=== PATIENT | female | born 1955 | race Caucasian/White ===

== ENCOUNTER 2021-04-09 15:03 | Outpatient (REF) | payer MEDICARE, OTHER, SELFPAY ==
--- NOTE | ~2021-04-09 | MM_ITS ---
EXAMINATION: MM SCREENING DIGITAL BREAST TOMOSYNTHESIS, BILATERAL CLINICAL INFORMATION: Screening. Asymptomatic. The lifetime risk of breast cancer based on the Tyrer-Cuzick Model is 8%. COMPARISON: Mammography: 04/27/2016, 04/03/2015, 03/30/2015 TECHNIQUE: Digital breast tomosynthesis is performed in both the craniocaudal and mediolateral oblique views along with computer-aided detection (CAD). Synthesized 2D images are generated from the tomosynthesis. Additional bilateral exaggerated CC views are provided. FINDINGS: The breasts are heterogeneously dense, which may obscure small masses (ACR BI-RADS breast composition Category c). There are no significant masses, abnormal calcifications, or other abnormalities. There is fine fibronodular parenchymal pattern similar to prior exams. No developing density. No significant changes. The skin contours are smooth. MM/MM tomosynthesis screening BI IMPRESSION: No mammographic evidence of malignancy. ASSESSMENT: BI-RADS 1: Negative RECOMMENDATION: Routine annual mammography screening. This patient's information was entered into a reminder system with a target due date for their next mammogram.
== END 2021-04-09 15:04 | disposition home or self-care (01) ==
LOC: HO.MAMMO 15:03
PROVIDERS: PCP Physician Assistant; Visit Provider Physician Assistant
DX: Z12.31 Encounter for screening mammogram for malignant neoplasm of breast (principal)
CPT/HCPCS: 77063; 77067

== ENCOUNTER 2021-08-10 07:12 | Outpatient (REF) | payer MEDICARE, OTHER, SELFPAY | END 2021-08-10 07:13 | disposition home or self-care (01) | LOC: HO.HMGCLDS 07:12 | PROVIDERS: PCP Physician Assistant; Visit Provider Internal Medicine | DX: Z20.822 Contact with and (suspected) exposure to COVID-19 (principal) | CPT/HCPCS: C9803; U0003; U0005 ==

== ENCOUNTER → 2021-09-10 14:19 | Outpatient (BNVA) | payer OTHER, SELFPAY | PROVIDERS: PCP Physician Assistant; Visit Provider Internal Medicine | DX: S40.011A Contusion of right shoulder, initial encounter (principal); S00.83XA Contusion of other part of head, initial encounter; S16.1XXA Strain of muscle, fascia and tendon at neck level, initial encounter; S80.02XA Contusion of left knee, initial encounter; W00.0XXA Fall on same level due to ice and snow, initial encounter | CPT/HCPCS: 70450; 73030; 99203 ==

== ENCOUNTER → 2021-09-16 14:58 | Outpatient (BNVA) | payer OTHER, SELFPAY | PROVIDERS: PCP Physician Assistant; Visit Provider Internal Medicine | DX: S20.211A Contusion of right front wall of thorax, initial encounter (principal); S16.1XXA Strain of muscle, fascia and tendon at neck level, initial encounter; W00.0XXA Fall on same level due to ice and snow, initial encounter | CPT/HCPCS: 99213 ==

== ENCOUNTER → 2021-10-04 15:15 | Outpatient (BNVA) | payer OTHER, SELFPAY | PROVIDERS: PCP Physician Assistant; Visit Provider Internal Medicine | DX: S20.211D Contusion of right front wall of thorax, subsequent encounter (principal); W18.30XD Fall on same level, unspecified, subsequent encounter | CPT/HCPCS: 99213 ==

== ENCOUNTER 2023-08-25 08:35 | Outpatient (AMB) | payer MEDICARE, OTHER, SELFPAY ==
--- NOTE | 2023-08-25 08:40 | A.OFFPC_ITS ---
Vital Signs 08/25/23 08:56 08/25/23 09:55 Height 5 ft 6 in Weight 173 lb 6 oz BMI 28.0 BP 170/100 H 170/88 H Blood Pressure Location Lt brachial Lt brachial Position Sitting Sitting Pulse 73 Pulse Source Pulse Oximeter Pulse Oximetry (%) 99 Oxygen Delivery Method Room Air Intake Visit Reasons: Est care/ speech and hearing referral Intake Note: Pt is here to est care and needs a referral for speech and hearing pt is due for a colon screening she last had one done at age 57 pt is due for a mammo and bone denstiy Allergies hayfever Allergy (Unknown, Uncoded 08/25/23 09:15) Unknown mangos Allergy (Unknown, Uncoded 08/25/23 09:15) Unknown Medication List - Last Reconciled 08/25/23 by DREW Castro ibuprofen (Motrin IB) 200 mg PO Q6H PRN Tobacco use date assessed: 08/25/23 Fall risk assessment: No Falls in past year Last assessed Fall Risk: 08/25/23 Dental Screening Dental Screen Date: 08/25/23 Did you have a dental visit in the last 12 months?: No Did you have a dental problem in the last 6 months where you did not have access to dental care?: No Was dental information given to patient?: No HPI HPI Comments History of Present Illness0 Details Patient is a 67-year-old female in today to establish care. She states she has not seen a primary care provider in over 4 years. She has a past medi janet history significant for hyperlipidemia, anxiety, and lower back pain. She is due for bone density, colonoscopy, mammogram. She has a chief complaint of diminished hearing bilaterally. 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 She denies any trauma to the area. Denies any discharge. Denies dizziness, vision change, headache. The patient also states that she has a significant family health history in regard to heart health. She has had several brothers with congestive heart failure and myocardial infarction. Her father also due to heart complications. She states that sometimes well teaching during the day she feels palpitations. She denies chest pain, shortness a breath, dizziness, vomiting, diarrhea, epigastric pain, dizziness, numbness. 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 1. Little interest or pleasure in doing things: not at all 2. Feeling down, depressed, or hopeless: not at all 3. Trouble falling or staying asleep, or sleeping too much: not at all 4. Feeling tired or having little energy: several days 5. Poor appetite or overeating: several days 6. Feeling bad about yourself - or that you are a failure or have let yourself or your family down: not at all 7. Trouble concentrating on things, such as reading the newspaper or watching television: not at all 8. Moving or speaking so slowly that other people could have noticed. Or the opposite - being so fidgety or restless that you have been moving around a lot more than usual: not at all 9. Thoughts that you would be better off or of hurting yourself in some way: not at all Total score: 2 Depression Screening Interpretation: Negative Depression Screening Done: Yes Source: Developed by Drs. Thomas Yeung, Jocy Hemphill, Michel Colmenares and colleagues, with an educational missy from [employer]. Thrive Questionnaire Date Thrive assessed: 08/25/23 I am a: Patient What is your living situation today?: I have a steady place to live Within the past 12 months, did the food you bought not last and you didn't have the money to get more?: Never true Within the past 12 months, did you worry whether your food would run out before you got money to buy more?: Never true Do you have trouble paying for medicines?: No Do you have trouble getting transportation to medical appointments?: No Do you have trouble paying your heating and electricity bill?: No Do you have trouble taking care of your child, family member or friend?: No Do you have trouble with day-to-day activities such as bathing, preparing meals, shopping, managing finances, etc.?: No Are you currently unemployed and looking for a job?: No Are you interested in more education?: No AUDIT C Alcohol Use Questionnaire (AUDIT-C) 1. How often do you have a drink containing alcohol?: Never Total Score: 0 LESTER-7 AMB Questionnaire LESTER-7 Date LESTER - 7 assessed: 08/25/23 Feeling nervous, anxious, or on edge: 1 = Several days Not being able to stop or control worryin = Not at all Worrying too much about different things: 0 = Not at all Trouble relaxin = Not at all Being so restless that it is hard to sit still: 0 = Not at all Becoming easily annoyed or irritable: 0 = Not at all Feeling afraid as if something awful might happen: 0 = Not at all Total LESTER-7 score (0-4 normal; 5-9 mild; 10-14 moderate; 15-21 severe): 1 Source: Developed by Drs. Thomas Yeung, Jocy Hemphill, Michel Colmenares and colleagues, with an educational missy from [employer]. LESTER-7 Assessment Billing LESTER-7 Assessment Tool: LESTER-7 Assessment 08979 Review of Systems Const Details: Constitutional : No Weight loss, No Fever, No Chills, No Fatigue, No Malaise ENT/Mouth : No sore throat, No Rhinorrhea. Admits diminished hearing in ears bilaterally. Eyes: No Eye Pain, No Swelling, No Redness Cardiovascular : No Chest Pain, No SOB, No Dyspnea on Exertion, No Orthopnea, No Edema, Admits ocassional Palpitations Respiratory : No Cough, No Sputum, No Wheezing Gastrointestinal : No Nausea, No Vomiting, No Diarrhea, No Constipation, No abdominal Pain, No Hematochezia, No Melena Genitourinary : No Dysuria, No Urinary Frequency, No Hematuria, Musculoskeletal : Admits right thigh pain. Skin : No Skin Lesions, No rash Neuro : No Weakness, No Numbness, No Dizziness, No Headache Psych : No Anxiety/Panic, No Depression Heme/Lymph: No Bruising, No Bleeding,No Lymphadenopathy Endocrine : No Polyuria, No Polydipsia All other systems reviewed and are negative Physical exam (Primary Care) Vital Signs: Last Vital Signs Pulse 73 08/25/23 08:56 BP 170/88 H 08/25/23 09:55 Pulse Ox 99 08/25/23 08:56 Oxygen Delivery Method Room Air 08/25/23 08:56 Care Plan Goal for BP management: Patient is going to be started on lisinopril. She has been instructed to take blood pressure readings at home. She will have follow-up and 1 month BMI result Body Mass Index 28.0 Tobacco/Smoking Status: Tobacco use Status Tobacco use date assessed 08/25/23 08/25/23 09:05 Patient Tobacco Use Status Former Tobacco user 08/25/23 09:05 Tobacco use type Cigarette 08/25/23 09:28 PHQ-9: PHQ-9 Score PHQ-9: Total score 2 08/25/23 10:11 Depression Screening Interpretation: Negative Thrive Assessment: Date of Thrive Assessment Date Thrive assessed 08/25/23 08/25/23 09:47 Const Other: Appearance: Alert.? Oriented X3.? No acute distress.? Eyes: Pupils equal, round and reactive to light.? ENT: Pharynx normal. TM intact, visible, pearly heath. ? Neck: Normal inspection.? Neck supple.? CVS: Normal heart rate and rhythm.? Pulses normal.? Respiratory: No respiratory distress.? Breath sounds normal.? Skin: Skin warm and dry.? Normal skin color.? Normal skin turgor.? Extremities: No lower extremity edema.? No calf ttp. 5/5 strength to bilateral upper and lower extremities Neuro: Oriented X 3.? No motor deficit.? No sensory deficit. CN 2-12 intact Assessment and Plan Assessment & Plan (1) Diminished hearing: Comment: Patient has referral to [facility]. Code(s): H91.90 - Unspecified hearing loss, unspecified ear Qualifiers: Laterality: bilateral Qualified Code(s): H91.93 - Unspecified hearing loss, bilateral (2) Palpitations: Comment: Patient has strong history of cardiac heart disease. In office EKG performed. Will order echocardiogram, give referral to consular officer. Patient has been educated on signs and symptoms of worsening disease Code(s): R00.2 - Palpitations (3) Hypertension: Comment: Patient has been started on lisinopril. She has been educated on the side effects of these medications. Code(s): I10 - Essential (primary) hypertension Qualifiers: Hypertension type: primary hypertension Qualified Code(s): I10 - Essential (primary) hypertension Plan: Patient is to take her blood pressure readings at home over the next month. Has follow-up appointment in 1 month. Patient has been educated on the importance of lowering her blood pressure. She has been educated on signs and symptoms of high blood pressure. Plan Take your medications as prescribed. If you were prescribed antibiotics today, it is important that you take your medication to their entirety, do not skip any doses, do not finish them early. Follow-up with your primary care provider this week. Return to the emergency department with new or worsening symptoms. Such as fevers, chills, chest pain, shortness of breath, nausea, vomiting, dizziness, headache, vision changes, lethargy In case of emergency call 911 Orders: Orders Comprehensive Met. Panel Today Z91.89 - Other specified personal risk factors, not elsewhere classified Complete Blood Count Auto Diff Today Z13.0 - Encounter for screening for diseases of the blood and blood-forming organs and certain disorders involving the immune mechanism TSH reflex Free T4 Today Z13.29 - Encounter for screening for other suspected endocrine disorder Vitamin D 25-OH (D2 and D3) Today Z13.21 - Encounter for screening for nutritional disorder AMB EKG-In Office Today R00.2 - Palpitations Lipid Panel Today Z13.220 - Encounter for screening for lipoid disorders UA CC w/rflx Micro + Cult Today E86.0 - Dehydration CA echo transthoracic complete Today R00.2 - Palpitations MM tomosynthesis screening BI Today Z12.31 - Encounter for screening mammogram for malignant neoplasm of breast XR DEXA axial skeleton Today Z78.0 - Asymptomatic menopausal state Referrals Speech and Hearing Referral H91.90 - Unspecified hearing loss, unspecified ear Gastroenterology Referral Z12.11 - Encounter for screening for malignant neoplasm of colon Cardiology Referral R00.2 - Palpitations Medications: New lisinopril 5 mg PO DAILY 90 tabs 0RF Coding Level of Care Code New Pt Level 4 (88949) Diagnoses Decreased hearing of both ears H91.93 Laterality: bilateral Palpitations R00.2 Primary hypertension I10 Hypertension type: primary hypertension Additional Codes LESTER-7 Assessment Billing - LESTER-7 Assessment Tool: LESTER-7 Assessment 01705 ([id number]) Time Spent (min) 45
[2023-08-25 08:56] VITALS: BP 170/100; PULSE 73; O2SAT 99; BMI 28.0
[2023-08-25 09:55] VITALS: BP 170/88
== END 2023-08-25 14:14 | disposition home or self-care (01) ==
PROVIDERS: Visit Provider Nurse Practitioner Primary Care
DX: H91.93 Unspecified hearing loss, bilateral (principal); R00.2 Palpitations; I10 Essential (primary) hypertension
CPT/HCPCS: 99204

== ENCOUNTER 2023-08-25 10:26 | Outpatient (REF) | payer MEDICARE, OTHER, SELFPAY | END 2023-08-25 10:27 | disposition home or self-care (01) | LOC: HO.SH 10:26 | PROVIDERS: Visit Provider Nurse Practitioner Primary Care | DX: Z01.118 Encounter for examination of ears and hearing with other abnormal findings (principal); H90.3 Sensorineural hearing loss, bilateral | CPT/HCPCS: 92557 ==

== ENCOUNTER 2023-09-16 07:51 | Outpatient (REF) | payer MEDICARE, OTHER, SELFPAY ==
[2023-09-16 08:11] LABS: MANUAL DIFF FLAG NO
[2023-09-16 09:24] LABS: Basophils Absolute Auto 0.1 X10*3/uL (0.0-0.2); Basophils Percent Auto 0.8 % (0-2); Eosinophils Absolute Auto 0.2 X10*3/uL (0.0-0.4); Eosinophils Percent Auto 3.3 % (0-4); Hematocrit 41.1 % (37.0-47.0); Hemoglobin 13.5 g/dl (12.0-16.0); Imm Gran Abs Auto 0.02 X10*3/uL (0.00-0.03); Imm Gran Pct Auto 0.3 % (0.0-0.4); Lymphocytes Absolute Auto 2.4 X10*3/uL (1.2-4.9); Lymphocytes Percent Auto 36.6 % (20-40); Mean Corpuscular HGB Conc 32.8 g/dl (31.0-35.0); Mean Corpuscular Hemoglobin 29.3 pg (27.0-33.0); Mean Corpuscular Volume 89.2 fL (80.0-98.0); Monocytes Absolute Auto 0.5 X10*3/uL (0.1-1.2); Monocytes Percent Auto 7.3 % (2-11); Neutrophils Absolute Auto 3.3 x10*3/uL (2.0-8.3); Neutrophils Percent Auto 51.7 % (45-73); Platelet Count 252 X10*3/uL (160-400); Red Blood Count 4.61 X10*6/uL (4.20-5.50); Red Cell Distribution Width 12.4 % (11.0-16.0); White Blood Count 6.4 X10*3/uL (4.8-10.8)
[2023-09-16 10:37] LABS: Alanine Aminotransferase 21 U/L (0-31); Albumin Level 4.1 g/dL (3.5-5.0); Alkaline Phosphatase 121 U/L (39-117); Anion Gap 14 (12-20); Aspartate Amino Transferase 18 U/L (5-31); Bilirubin Total 0.7 mg/dL (0.0-1.0); Blood Urea Nitrogen 17 mg/dL (9-16); Calcium 9.7 mg/dL (8.4-10.2); Carbon Dioxide 23 mmol/L (22-29); Chloride 107 mmol/L (96-108); Cholesterol 236 mg/dL (<200); Estimated Glomerular Filt Rate 59; Glucose Random 91 mg/dL (60-115); HDL Cholesterol 63 mg/dL (>40); LDL Cholesterol Calculated 152 mg/dL (<100); Potassium 4.2 mmol/L (3.3-5.1); Sodium 140 mmol/L (135-145); TSH reflex Free T4 1.19 uIU/mL (0.32-4.0); Total Protein 7.5 g/dL (6.5-8.0); Triglycerides 109 mg/dL (<150)
[2023-09-16 10:52] LABS: Appearance Urine Clear; Color Urine Yellow; Glucose Urine UA Negative (Negative); Leukocyte Esterase Urine Small (1+) (Negative); Nitrite Urine Negative (Negative); UMIC TRIGGER UACC YES; Urine Blood Small (1+) (Negative); Urine Ketones Negative (Negative); Urine Protein Negative (Neg-Trace)
[2023-09-16 11:06] LABS: Bacteria Urine None Seen (None Seen); Hyaline Casts Urine 0-2 /LPF (0-2); UACC Culture Trigger YES; WBC Urine 0-5 /HPF (0-5)
[2023-09-20 16:27] LABS: Vitamin D 25-OH, D2 <4 ng/mL; Vitamin D 25-OH, D3 16 ng/mL; Vitamin D 25-OH, Total 16 ng/mL (30-100)
== END 2023-09-16 07:52 | disposition home or self-care (01) ==
LOC: HO.LAB 07:51
PROVIDERS: PCP Nurse Practitioner Primary Care; Visit Provider Nurse Practitioner Primary Care
DX: Z13.29 Encounter for screening for other suspected endocrine disorder (principal); Z13.220 Encounter for screening for lipoid disorders; Z13.0 Encounter for screening for diseases of the blood and blood-forming organs and certain disorders involving the immune mechanism; Z13.21 Encounter for screening for nutritional disorder; Z91.89 Other specified personal risk factors, not elsewhere classified; E86.0 Dehydration
CPT/HCPCS: 36415; 80053; 80061; 81001; 82306; 84443; 85025; 87086

== ENCOUNTER 2023-09-26 15:13 | Outpatient (REF) | payer SELFPAY ==
--- NOTE | 2023-09-27 11:13 | MHC.AU.HA1 ---
Hearing Aid Evaluation Date of Visit: 09/26/23 Historical Information: Description of Hearing: Moderate sloping to severe sensorineural hearing loss, bilaterally Summary: Pippa Roach is ready to pursue amplification due to increasing hearing difficulties. 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 She often has difficulty hearing her students as well as the keyboard teacher. She is constantly asking for repetition and often misses parts of conversations. Discussed styles and technology levels. Pippa Roach preferred the RITE style hearing aid. Will start with dome; however, discussed the possibility of adding a custom ear mold, if needed based on feedback/real ear measures. Pippa Roach opted for a rechargeable hearing aid. She is not interested in the bluetooth capabilities of hearing aids. *Pippa Roach has [facility] insurance which has a hearing aid benefit of up to $1700/ear. Per Nolberto Buckner, [facility] can directly bill [facility] for hearing aids and Pippa Roach will be responsible for remaining portion. Hearing Aid Prescription: Based on the individual?s shared listening needs, communication environments, dexterity, desire for connectivity, and personal preferences, the following prescription for amplification has been made: Right ear: Make, Model, Color: Oticon Real 2 miniRITE-R Color: Silver Battery Size: Rechargeable Software Firmware Engineer/Slim Tube: 1/85 Type of Earmold/Dome/CShell/SlimTip: 6mm power dome Left ear: Left ear prescription to be same as Right Hearing Aid above: Make, Model, Color: Oticon Real 2 miniRITE-R Color: Silver Battery Size: Rechargeable Software Firmware Engineer/Slim Tube: 1/85 Type of Earmold/Dome/CShell/SlimTip: 6mm power dome Accessories/Assistive Technology: Desktop Hostage Negotiator Smart Hostage Negotiator Plan of Care: Patient wishes to purchase hearing aids as prescribed Action Taken/Action Needed: Hearing Instrument Fitting to be scheduled when materials arrive Primary Diagnosis: H90.3 Bilateral Sensorineural Hearing Loss Signature: Provider: Eri Ocasio, [facility]
== END 2023-09-26 15:14 | disposition home or self-care (01) ==
LOC: HO.HAP 15:13
PROVIDERS: Visit Provider Nurse Practitioner Primary Care
DX: Z46.1 Encounter for fitting and adjustment of hearing aid (principal); H90.3 Sensorineural hearing loss, bilateral
CPT/HCPCS: 92590; 92591

== ENCOUNTER → 2023-10-04 15:39 | Outpatient (REF) | payer MEDICARE, OTHER, SELFPAY ==
--- NOTE | 2023-10-04 15:44 | CA_ITS ---
Transthoracic Echocardiogram Patient (Last, First, Middle): Pipap Case Ellen Gender: Female Date of : 1955 Age: 68 Procedure Date: 10/04/2023 Procedure Type: Transthoracic Echocardiogram Location: OP Height: 167.64 cm Weight: 72.58 kg BSA: 1.82 m2 Heart Rate: bpm BP: 116 / 60 mmHg Nurse Auditor: Referring MD: Kirk RUSSELL Job Tracer: Memo Roa MD Symptoms: R00.2 - Palpitations Study Quality: Good ECG Rhythm: Sinus Conclusions: - 1. Normal LV ejection fraction of 60 65% with impaired relaxation filling pattern 2. Trace to mild aortic regurgitation 3. Normal RV systolic pressure 4. No pericardial effusion Findings Left Ventricle Normal left ventricular size, thickness, and systolic function. The visually estimated ejection fraction is between 60-65%. Spectral Doppler is indicative of an impaired relaxation filling pattern. E/E prime ratio is <8, consistent with normal filling pressures. Right Ventricle Normal right ventricular cavity size and systolic function. Atria Both atria are normal in size. Interatrial shunt cannot be excluded. Aortic Valve Normal aortic valve structure and function. There is no aortic valve stenosis. There is mild aortic valve regurgitation. Mitral Valve Normal mitral valve structure and function. There is trace mitral valve regurgitation. There is no mitral valve stenosis. Pulmonic Valve The pulmonic valve is likely normal. There is trace pulmonic valve regurgitation. Tricuspid Valve Normal tricuspid valve structure. There is trace tricuspid valve regurgitation. The right ventricular systolic pressure is normal. The right ventricular systolic pressure is 24 mmHg. Normal right atrial pressure. There is no evidence of pulmonary hypertension. Great Vessels All visible segments of the aorta are normal in size. The pulmonary artery was not well visualized. There is no dilatation of the ascending aorta measuring 3.30 cm. Venous The inferior vena cava is normal in size and collapses greater than 50% with inspiration. Pericardium/Pleural There is no evidence of pericardial effusion. Prior Study Comparison No prior study available for comparison. Measurements 2D Linear Measurements IVSd: 0.86 0.6-0.9/0.6-1.0 cm LVIDd: 4.04 3.9-5.3/4.2-5.9 cm LVIDd Index: 2.22 2.4-3.2/2.2-3.1 cm/m2 LVIDs: 2.47 2.0-3.6 cm LVPWd: 1.00 0.7-1.1 cm Ao Root: 2.80 2.1-3.5 cm LA Diam: 3.40 2.7-3.8/3.0-4.0 cm LAIDs Index: 1.87 1.5-2.3 cm/m2 LV Mass: 144.58 67-162/88-224 g LV Mass Index: 79.44 43-95/49-115 g/m2 LVOT Diam: 2.00 3.0+(-)1.3 cm Mitral Valve MV Pk E: 0.78 MV PK A: 0.80 MV Decel Time: 178.00 E/A: 1.00 E'Lateral: 8.81 E'Medial: 7.40 E/E' Med: 10.60 E/E' Lat: 8.90 PHT: 52.00 MVA PHT: 4.23 Decel Sioux: 4.41 Aortic Valve AoV Pk Jeison: 1.35 AoV Mn Jeison: 0.82 AoV VTI: 0.34 AoV Pk Grad: 7.00 Aov Mn Grad: 3.00 RUSS Cont.VTI: 2.33 LVOT LVOT Pk Jeison: 1.11 LVOT Mn Jeison: 0.65 LVOT VTI: 0.25 LVOT Pk Grad: 5.00 LVOT Mn Grad: 2.00 LVOT Diam: 2.00 LVOT Area: 3.14 Diastolic Function MV Pk E: 0.78 MV Pk A: 0.80 E/A: 1.00 E'Medial: 7.40 E/E' Med: 10.60 E' Laterial: 8.81 E/E' Lat: 8.90 Right Ventricle TAPSE (mm): 24.00 TVS' Jeison: 14.00 Tricuspid Valve TR Pk Jeison: 2.28 TR Pk Grad: 21.00 RA Press: 3.00 RVSP: 24.00 Great Vessels Aorta Ao Root-2D: 2.80 2.0-3.7 cm Ao Asc: 3.30 2.1-3.4 cm Pulmonary Valve PV Pk Jeison: 0.88 Peak PV Grad: 3.00 Updated in Other Vendor System with Status of Final Memo Roa MD electronically signed on 10/05/2023 11:56:23 AM with status of Final
== END ==
LOC: HO.CARD 15:39
PROVIDERS: PCP Nurse Practitioner Primary Care; Visit Provider Nurse Practitioner Primary Care
DX: R00.2 Palpitations (principal)
CPT/HCPCS: 93306

== ENCOUNTER → 2023-10-04 15:44 | Outpatient (BNV) | payer MEDICARE, OTHER, SELFPAY | PROVIDERS: PCP Nurse Practitioner Primary Care; Visit Provider Internal Medicine Cardiovascular Disease | DX: I35.1 Nonrheumatic aortic (valve) insufficiency (principal); R00.2 Palpitations | CPT/HCPCS: 93306 ==

== ENCOUNTER 2023-10-10 15:16 | Outpatient (REF) | payer MEDICARE, OTHER, SELFPAY | END 2023-10-10 15:17 | disposition home or self-care (01) | LOC: HO.HAP 15:16 | PROVIDERS: Visit Provider Nurse Practitioner Primary Care | DX: Z46.1 Encounter for fitting and adjustment of hearing aid (principal); H90.3 Sensorineural hearing loss, bilateral | CPT/HCPCS: V5261; V5299 ==

== ENCOUNTER 2023-10-18 10:43 | Outpatient (REF) | payer MEDICARE, OTHER, SELFPAY | END 2023-10-18 10:44 | disposition home or self-care (01) | LOC: HO.HOSX 10:43 | PROVIDERS: Visit Provider Physician Assistant | DX: Z13.89 Encounter for screening for other disorder (principal) ==

== ENCOUNTER 2023-10-19 14:01 | Outpatient (REF) | payer MEDICARE, OTHER, SELFPAY ==
--- NOTE | ~2023-10-19 | MM_ITS ---
EXAMINATION: MM SCREENING DIGITAL BREAST TOMOSYNTHESIS, BILATERAL CLINICAL INFORMATION: Screening. Asymptomatic. COMPARISON: Mammography: This study is compared with prior exams dating back to 2016. TECHNIQUE: Digital breast tomosynthesis is performed in both the craniocaudal and mediolateral oblique views along with computer-aided detection (CAD). Synthesized 2D images are generated from the tomosynthesis. FINDINGS: The breasts are heterogeneously dense, which may obscure small masses (ACR BI-RADS breast composition Category c). There are no significant masses, abnormal calcifications, or other abnormalities. MM/MM tomosynthesis screening BI IMPRESSION: No mammographic evidence of malignancy. ASSESSMENT: BI-RADS BI-RADS 1 - Negative RECOMMENDATION: Routine annual mammography screening. 1 year F/U This examination should not preclude the clinical evaluation of a suspicious palpable abnormality. This patient's information was entered into a reminder system with a target due date for their next mammogram.
--- NOTE | ~2023-10-19 | MM_ITS ---
EXAMINATION: BONE DENSITOMETRY CLINICAL INDICATION: Asymptomatic menopausal state. COMPARISON: This is the patient's baseline examination. TECHNIQUE: Using a Picapica DXA System (software version: 13.1) manufactured by [employer], dual-energy x-ray absorptiometry was performed of the lumbar spine and left hip. The images are of good technical quality. Summary results are attached. FINDINGS: LEFT FEMUR, NECK: BMD 0.742 g/cm2, Z-score -0.6, T-score -2.1, osteopenia. LEFT FEMUR, TOTAL: BMD 0.739 g/cm2, Z-score -0.8, T-score -2.1, osteopenia. AP SPINE L1-L4: BMD 1.210 g/cm2, Z-score 1.7, T-score 0.3, normal. IDENTIFIED RISK FACTORS: Menopause. HISTORY OF FRACTURE: None listed. MEDICATIONS: None listed. MM/XR DEXA axial skeleton IMPRESSION: 1. DIAGNOSIS: Osteopenia based on the lowest T-score value of -2.1 in the femur neck and total femur applying World Health Organization criteria. 2. 10-YEAR FRACTURE RISK PREDICTION, FRAX: Major osteoporotic fracture (clinical spine, forearm, hip or shoulder) 12.7%. Hip fracture 2.7%. 3. Treatment Recommendations: NOF guidelines recommend consideration for treatment in postmenopausal women and men age 50 and older presenting with the following: -A hip or vertebral (clinical or morphometric) fracture. -T-score less than or equal to -2.5 at the femoral neck or spine after appropriate evaluation to exclude secondary causes. -Low bone mass at the hip or spine and a 10-year fracture probability by FRAX of greater than or equal to 3% for hip fracture or greater than or equal to 20% for major osteoporotic fracture based on the [place] adapted WHO algorithm. 4. Other Recommendations: All treatment decisions require clinical judgment and consideration of individual patient factors, including patient preferences, comorbidities, previous drug use, risk factors not captured in the FRAX model (e.g. frailty, falls, vitamin D deficiency, increased bone turnover, interval significant decline in bone density) and possible under or overestimation of fracture risk by FRAX. Additional medical evaluation for secondary cause of low bone mineral density may be appropriate. FUTURE SCAN RECOMMENDATION: People with diagnosed cases of osteoporosis or at high risk for fracture should have regular bone mineral density tests. For patients eligible for Medicare, routine testing is allowed once every 2 years. The testing frequency can be increased to one year for patients who have rapidly progressing disease, those who are receiving or discontinuing medical therapy to restore bone mass, or have additional risk factors.
== END 2023-10-19 14:02 | disposition home or self-care (01) ==
LOC: HO.MAMMO 14:01
PROVIDERS: PCP Nurse Practitioner Primary Care; Visit Provider Nurse Practitioner Primary Care
DX: Z12.31 Encounter for screening mammogram for malignant neoplasm of breast (principal); Z13.820 Encounter for screening for osteoporosis; Z78.0 Asymptomatic menopausal state
CPT/HCPCS: 77063; 77067; 77080

== ENCOUNTER → 2023-10-19 14:30 | Outpatient (BNV) | payer MEDICARE, OTHER, SELFPAY | PROVIDERS: PCP Nurse Practitioner Primary Care; Visit Provider Radiology Diagnostic Radiology | DX: Z12.31 Encounter for screening mammogram for malignant neoplasm of breast (principal) | CPT/HCPCS: 77063; 77067 ==

== ENCOUNTER 2023-11-01 15:55 | Outpatient (REF) | payer MEDICARE, OTHER, SELFPAY | END 2023-11-01 15:56 | disposition home or self-care (01) | LOC: HO.HAP 15:55 | PROVIDERS: Visit Provider Nurse Practitioner Primary Care | DX: Z13.89 Encounter for screening for other disorder (principal) ==

== ENCOUNTER 2023-11-06 11:48 | Outpatient (REF) | payer SELFPAY | END 2023-11-06 11:49 | disposition home or self-care (01) | LOC: HO.HAP 11:48 | PROVIDERS: Visit Provider Nurse Practitioner Primary Care | DX: Z46.1 Encounter for fitting and adjustment of hearing aid (principal) | CPT/HCPCS: V5299 ==

== ENCOUNTER 2023-11-09 15:20 | Outpatient (REF) | payer SELFPAY ==
--- NOTE | 2023-11-09 16:04 | MHC.AU.HA3 ---
Hearing Instrument Follow-Up- Binaural Date of Visit: 11/09/23 Right Ear: Make, Model, Color, Serial Number: Oticon Real 2 miniRITE-R SN: [id number] Color: Silver Production Quality Analyst Repair Warranty: 10/27/2026 Production Quality Analyst Loss and Damage Warranty: 10/27/2026 [facility] Service Plan: OPTED OUT Battery Size: Rechargeable Engraver Signature/Slim Tube: 2/85 Earmold/Dome/CShell/SlimTip:6mm double brunner dome (no retention tail) Type of Wax Guard: miniFit Dispensed By: [facility] Date of Fittin10/10/2023 Left Ear: Make, Model, Color, Serial Number: Oticon Real 2 miniRITE-R SN: [id number] Color: Silver Production Quality Analyst Repair Warranty: 10/27/2026 Production Quality Analyst Loss and Damage Warranty: Used [facility] Service Plan: OPTED OUT Battery Size: Rechargeable Engraver Signature/Slim Tube: 2/85 Earmold/Dome/CShell/SlimTip: 6mm double brunner dome (no retention tail) Type of Wax Guard: miniFit Dispensed By: [facility] Date of Fittin10/10/2023 Follow-Up Summary: Pippa Roach picked up her L&D replacement left aid. Paired aids in [facility]. Observed Pippa Roach having difficulty fully inserting domes into canals. Swapped to 6mm dbl brunner, easier insertion noted. Follow up in 2-3 weeks to check in now that she has two aids again, as they are still relatively new to her. Recommendations: Recommendations: An additional follow-up was scheduled to monitor progress. Diagnosis Code(s): Primary Diagnosis: H90.3 Bilateral Sensorineural Hearing Loss Signature: Provider: Eri Nieves, [facility]
== END 2023-11-09 15:21 | disposition home or self-care (01) ==
LOC: HO.HAP 15:20
PROVIDERS: Visit Provider Nurse Practitioner Primary Care
DX: Z13.89 Encounter for screening for other disorder (principal)

== ENCOUNTER 2023-12-13 15:37 | Outpatient (REF) | payer SELFPAY | END 2023-12-13 15:38 | disposition home or self-care (01) | LOC: HO.HAP 15:37 | PROVIDERS: Visit Provider Nurse Practitioner Primary Care | DX: Z13.89 Encounter for screening for other disorder (principal) | CPT/HCPCS: V5267 ==

== ENCOUNTER 2024-02-27 13:19 | Outpatient (AMB) | payer MEDICARE, OTHER, SELFPAY ==
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
[2024-02-27 13:32] VITALS: BP 152/70; PULSE 102; O2SAT 98; BMI 27.0
== END 2024-02-27 14:22 | disposition home or self-care (01) ==
PROVIDERS: PCP Nurse Practitioner Primary Care; Visit Provider Nurse Practitioner Primary Care
DX: I10 Essential (primary) hypertension (principal); E78.5 Hyperlipidemia, unspecified; E55.9 Vitamin D deficiency, unspecified
CPT/HCPCS: 99213

== ENCOUNTER 2024-03-25 13:01 | Outpatient (REF) | payer MEDICARE, OTHER, SELFPAY ==
[2024-03-25 13:18] LABS: MANUAL DIFF FLAG NO
[2024-03-25 13:42] LABS: Basophils Absolute Auto 0.1 X10*3/uL (0.0-0.2); Basophils Percent Auto 0.9 % (0-2); Eosinophils Absolute Auto 0.2 X10*3/uL (0.0-0.4); Eosinophils Percent Auto 2.7 % (0-4); Hematocrit 40.3 % (37.0-47.0); Hemoglobin 13.7 g/dl (12.0-16.0); Imm Gran Abs Auto 0.03 X10*3/uL (0.00-0.03); Imm Gran Pct Auto 0.4 % (0.0-0.4); Lymphocytes Absolute Auto 2.6 X10*3/uL (1.2-4.9); Lymphocytes Percent Auto 33.9 % (20-40); Mean Corpuscular Hemoglobin 30.3 pg (27.0-33.0); Mean Corpuscular Volume 89.2 fL (80.0-98.0); Mean Platelet Volume 9.6 fL (9.4-12.3); Monocytes Absolute Auto 0.5 X10*3/uL (0.1-1.2); Monocytes Percent Auto 5.8 % (2-11); Neutrophils Absolute Auto 4.4 x10*3/uL (2.0-8.3); Neutrophils Percent Auto 56.3 % (45-73); Platelet Count 288 X10*3/uL (160-400); Red Blood Count 4.52 X10*6/uL (4.20-5.50); Red Cell Distribution Width 13.2 % (11.0-16.0); White Blood Count 7.8 X10*3/uL (4.8-10.8)
[2024-03-25 14:11] LABS: Alanine Aminotransferase 17 U/L (0-31); Albumin Level 4.3 g/dL (3.5-5.0); Alkaline Phosphatase 140 U/L (39-117); Anion Gap 14 (12-20); Aspartate Amino Transferase 16 U/L (5-31); Bilirubin Total 0.9 mg/dL (0.0-1.0); Blood Urea Nitrogen 12 mg/dL (9-16); Calcium 10.1 mg/dL (8.4-10.2); Carbon Dioxide 26 mmol/L (22-29); Chloride 108 mmol/L (96-108); Cholesterol 189 mg/dL (<200); Estimated Glomerular Filt Rate > 60; Glucose Random 109 mg/dL (60-115); HDL Cholesterol 59 mg/dL (>40); LDL Cholesterol Calculated 99 mg/dL (<100); Potassium 3.6 mmol/L (3.3-5.1); Sodium 144 mmol/L (135-145); Total Protein 7.6 g/dL (6.5-8.0); Triglycerides 157 mg/dL (<150)
[2024-03-25 14:39] LABS: Vitamin B12 244 pg/mL (200-900)
[2024-03-25 15:21] LABS: Appearance Urine Clear; Color Urine Yellow; Glucose Urine UA Negative (Negative); Leukocyte Esterase Urine Trace (Negative); Nitrite Urine Negative (Negative); PH 6.5 (5.0-9.0); Specific Gravity - Urine >= 1.030 (1.005-1.025); UMIC TRIGGER UACC YES; Urine Blood Negative (Negative); Urine Ketones Negative (Negative); Urine Protein Trace mg/dL (Neg-Trace)
[2024-03-25 15:27] LABS: Bacteria Urine None Seen (None Seen); Hyaline Casts Urine 0-2 /LPF (0-2); RBC Urine 0-2 /HPF (0-2); WBC Urine 0-5 /HPF (0-5)
[2024-03-30 15:38] LABS: Vitamin D 25-OH, D2 <4 ng/mL; Vitamin D 25-OH, D3 34 ng/mL; Vitamin D 25-OH, Total 34 ng/mL (30-100)
[2024-03-31 16:09] LABS: Vitamin B6 2.3 ng/mL (2.1-21.7)
== END 2024-03-25 13:02 | disposition home or self-care (01) ==
LOC: HO.LAB 13:01
PROVIDERS: PCP Nurse Practitioner Family; Visit Provider Nurse Practitioner Primary Care
DX: Z13.21 Encounter for screening for nutritional disorder (principal); Z13.220 Encounter for screening for lipoid disorders; Z91.89 Other specified personal risk factors, not elsewhere classified; Z13.0 Encounter for screening for diseases of the blood and blood-forming organs and certain disorders involving the immune mechanism
CPT/HCPCS: 36415; 80053; 80061; 81001; 82306; 82607; 84207; 85025

== ENCOUNTER 2024-04-08 13:00 | Outpatient (REF) | payer SELFPAY | END 2024-04-08 13:01 | disposition home or self-care (01) | LOC: HO.HAP 13:00 | PROVIDERS: Visit Provider Nurse Practitioner Family | DX: Z46.1 Encounter for fitting and adjustment of hearing aid (principal) | CPT/HCPCS: 92593 ==

== ENCOUNTER 2024-05-21 10:19 | Outpatient (REF) | payer MEDICARE, OTHER, SELFPAY ==
[2024-05-21 14:19] LABS: Influenza A PCR NEGATIVE (Negative); Influenza B PCR NEGATIVE (Negative); Resp Syncy Virus RNA Qual PCR NEGATIVE (Negative); SARS COV2 PCR INHOUSE NEGATIVE (Negative)
== END 2024-05-21 10:20 | disposition home or self-care (01) ==
LOC: HO.LAB 10:19
PROVIDERS: Nurse Practitioner Family; PCP Nurse Practitioner Family
DX: Z13.89 Encounter for screening for other disorder (principal)
CPT/HCPCS: 0241U; 99212

== ENCOUNTER 2024-05-21 10:19 | Outpatient (AMB) | payer MEDICARE, OTHER, SELFPAY ==
[2024-05-21 10:20] VITALS: BP 136/84; PULSE 106; TEMP 36.1; O2SAT 96; BMI 28.1
--- NOTE | 2024-05-21 10:20 | AM.OFFWIN_ITS ---
Intake Vital Signs 05/21/24 10:20 Height 5 ft 6 in Weight 174 lb 6 oz BMI 28.1 BP 136/84 Blood Pressure Location Lt brachial Position Sitting Pulse 106 H Pulse Source Pulse Oximeter Temp 97.0 F Temp Source Temporal Artery Scan Pulse Oximetry (%) 96 Oxygen Delivery Method Room Air Intake Visit Reasons: EP ? Bronchitis Intake Note: Pt presents to the office today for c/o chest tightness,cough, and mucus x1 week. 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 Patient Tobacco Use Status: Former Tobacco user Allergies jayla Allergy (Severe, Verified 05/21/24 10:23) Rash No Known Drug Allergies Allergy (Unknown, Verified 05/21/24 10:23) none hayfever Allergy (Unknown, Uncoded 05/21/24 10:23) Unknown HPI HPI Comments History of Present Illness0 Details 68 y/o female patient who presents to [facility] walk in clinic with c/o chest tightness, productive cough, and wheezing x 1 week. Reports SOB and subjective fevers at home. Denies nausea or vomiting. She has been using OTC DayQuil Tablets with no much relief. 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 Cognitive needs: No Hearing needs: No Vision needs: No Review of Systems Const All systems reviewed & are unremarkable except as noted in HPI and below Physical Exam Vital Signs: Last Vital Signs Temp 97.0 F 05/21/24 10:20 Pulse 106 H 05/21/24 10:20 BP 136/84 05/21/24 10:20 Pulse Ox 96 05/21/24 10:20 Oxygen Delivery Method Room Air 05/21/24 10:20 BMI result Body Mass Index 28.1 Const General: cooperative and no acute distress; No comfortable Nutritional Appearance: overweight Orientation/consciousness: patient oriented x3 HEENT Head: Yes normocephalic Ears: external ears normal and TM abnormal bulging and with fluid behind the TM General nose exam: Abnormal mucous membranes and turbinates present boggy and erythematous Mouth: moist mucous membranes Throat: Yes postnasal drainage Resp Effort & Inspection: normal respiratory effort, able to speak in complete sentences and Actively coughing Auscultation: no crackles, no rales, rhonchi and wheezes Cardio Heart sounds: S1 normal heart sound present and S2 normal heart sound present Neuro General: patient oriented x3, gait normal and moves all extremities Psych Speech and movement: Normal speech and movement present Assessment & Plan Assessment & Plan (1) Cough in adult: Code(s): R05.9 - Cough, unspecified Plan: OTC cough remedies Ordered Chest Xray Prednisone ordered. (2) Wheezing on auscultation: Code(s): R06.2 - Wheezing Plan: OTC cough remedies Ordered Chest Xray Prednisone ordered. Plan OTC cough remedies Ordered Chest Xray Prednisone ordered. Orders: Orders SARS-CoV2/FLU/RSV Today R09.89 - Other specified symptoms and signs involving the circulatory and respiratory systems XR chest 2V Today R05.9 - Cough, unspecified, R06.2 - Wheezing Medications: New prednisone 50 mg PO DAILY 5 days 5 tabs 0RF R05.9 - Cough, unspecified, R06.2 - Wheezing doxycycline hyclate 100 mg PO BID 7 days 14 caps 0RF R05.9 - Cough, unspecified, R06.2 - Wheezing benzonatate 100 mg PO TID 60 caps 0RF R05.9 - Cough, unspecified Coding Level of Care Code Est Pt Level 4 (27323) Diagnoses Cough in adult R05.9 Wheezing on auscultation R06.2 Time Spent (min) 20
== END 2024-05-21 11:13 | disposition home or self-care (01) ==
PROVIDERS: PCP Nurse Practitioner Family; Visit Provider Nurse Practitioner Family
DX: R05.9 Cough, unspecified (principal); R06.2 Wheezing

== ENCOUNTER 2024-05-21 10:51 | Outpatient (REF) | payer MEDICARE, OTHER, SELFPAY ==
--- NOTE | ~2024-05-21 | XR_ITS ---
EXAMINATION: XR CHEST CLINICAL INFORMATION: Cough, wheezing, and chest tightness for one week. COMPARISON: June 07, 2019. TECHNIQUE: 2 views of the chest were obtained. FINDINGS: Question very subtle focal left lower lobe infiltrate, equivocal, improved compared with June 07, 2019. No consolidation, effusion, or pneumothorax is seen. The cardiovascular structures, mediastinum, diaphragm, and soft tissues appear unremarkable. Mild S-shaped curvature of the spine. XR/XR chest 2V IMPRESSION: Findings as above. Electronically signed by: Guillermo Roberto MD 05/21/2024 11:34 AM EDT
== END 2024-05-21 10:52 | disposition home or self-care (01) ==
LOC: HO.HMGCX 10:51
PROVIDERS: PCP Nurse Practitioner Family; Visit Provider Nurse Practitioner Family
DX: R05.9 Cough, unspecified (principal); R06.2 Wheezing
CPT/HCPCS: 0241U; 71046; 99212

== ENCOUNTER 2024-06-19 14:32 | Outpatient (AMB) | payer MEDICARE, OTHER, SELFPAY ==
--- NOTE | 2024-06-19 14:37 | MHC.OFFVIS ---
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 She is doing well with no concerns. Attempting to eat a healthy diet with calcium and vitamin D and stays active with exercise-walking. Currently not sexually active. Denies any vaginal dryness or irritation. STI testing offered; she declined. Last pap smear; negative history. Last mammogram; 2023. Colonoscopy to be scheduled. Denies any family history of ovarian or colon cancer. FH breast cancer-M.aunt. [facility] Medical History (Updated 06/19/24 @ 15:10 by Monica Seals CNM) Pelvic fullness Hypertension Mitral regurgitation Hyperlipidemia Post-menopause History of low back pain Surgical History History of mandibular surgery Family History (Updated 06/19/24 @ 14:44 by RANDY Mendez) Brother Congestive heart failure Brother Congestive heart failure Brother Myocardial infarction Father Myocardial infarction Maternal Aunt History of breast cancer, Onset Age: 39 Social History Housing: Apartment Patient Tobacco Use Status: Former Tobacco user Tobacco use type: Cigarette Cigarette Packs Per Day: 2 Years Smoked: 30 Second Hand Smoke Exposure: No service: No Current occupational status: employed 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 Cognitive needs: No Hearing needs: No Vision needs: No Female Reproductive History Menstrual Menopause type: natural Total pregnancies: 0 Date of Mammogram: 10/19/23 (Birad 1) Date of last Bone Density Screenin10/19/23 Review of Systems Const All systems reviewed & are unremarkable except as noted in HPI and below Reports as per HPI Eyes Reports no additional complaints ENT Reports no additional complaints Card Reports no additional complaints Resp Reports no additional complaints GI Reports as per HPI and Reports no additional complaints Reports as per HPI Musc Reports no additional complaints Skin/Breast Reports as per HPI Neuro Reports no additional complaints Psych Reports no additional complaints Endo Reports no additional complaints Romeo/Lymph Reports no additional complaints Aller/Immun Reports no additional complaints Physical Exam Vital Signs: Last Vital Signs BP 140/68 H 06/19/24 14:38 BMI result Body Mass Index 27.6 Const General: cooperative, healthy appearing, no acute distress, well developed and alert Orientation/consciousness: patient oriented x3 HEENT Head: Yes normal to inspection Eyes General: appearance normal, both eyes and all related structures Neck Neck: Yes normal visual inspection Thyroid: Thyroid normal Chest Chest palpation & inspection: normal inspection of the chest and other (no puckering, dimpling, peau de orange, retraction, discharge, masses) Breast/axilla inspection: normal inspection of the breasts Breast/axilla palpation: normal palpation of the breasts Resp Effort & Inspection: normal respiratory effort GI Inspection: Yes normal to inspection Palpation (GI): Soft to palpation Rectal Exam - Female: deferred General: Yes bladder normal to palpation External Female Exam: normal external appearance and normal appearance of the urethra Speculum Exam - Vagina: normal palpation and vagina atrophic Speculum Exam - Cervix: normal appearance of the cervix, normal palpation and Other cervical findings present (Atrophic changes bled slightly with Pap) Bimanual exam- vagina & uterus: normal bimanual exam, normal palpation, uterine size normal, bladder normal to palpation, normal palpation and non-tender Bimanual Exam- Adnexa, other: Other (pelvic fullness right side) Skin General skin exam: no rashes or lesions noted Rashes: no rashes Neuro General: patient oriented x3 Cognition (Neuro): normal cognition Extrem General: Yes normal to inspection Psych Attitude: cooperative Thought process: Normal thought process present Assessment & Plan Assessment & Plan (1) Encounter for well woman exam with routine gynecological exam: Code(s): Z01.419 - Encounter for gynecological examination (general) (routine) without abnormal findings Category: Medical (2) Pelvic fullness: Code(s): R19.00 - Intra-abdominal and pelvic swelling, mass and lump, unspecified site Category: Medical Plan Discussed: Current recommendations for pap smears per ASCCP guidelines. Breast awareness, periodic self breast exams and yearly mammogram. Maintain a healthy lifestyle, well balanced diet including Calcium 1,200 mg and Vitamin D 800 IU daily, and routine exercise. Contact the office with any postmenopausal bleeding. Pelvic ultrasound, and follow up in person. Fullness can be attributed to possibly a loop of bowel, ovarian cyst or mass, fibroid, adhesions, other... Patient verbalizes understanding and agrees to the plan of care. She was given opportunity to ask questions and all questions were answered to the best of my ability. Return to the office 1-2 years, or as needed. This note is constructed using voice recognition software. While every effort has been made to ensure accuracy, lumber marker errors may have been included. 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 Orders: Orders PAP + HPV E6/E7 rfx 18/45 Today Z01.419 - Encounter for gynecological examination (general) (routine) without abnormal findings Coding Level of Care Code New Pt Prev Care >65yr (94896) Diagnoses Encounter for well woman exam with routine gynecological exam Z01.419 Pelvic fullness R19.00
[2024-06-19 14:38] VITALS: BP 140/68; BMI 27.6
== END 2024-06-19 15:50 | disposition home or self-care (01) ==
LOC: HO.HWS 14:32
PROVIDERS: PCP Nurse Practitioner Family; Visit Provider Advanced Practice Midwife
DX: Z01.419 Encounter for gynecological examination (general) (routine) without abnormal findings (principal); R19.00 Intra-abdominal and pelvic swelling, mass and lump, unspecified site
CPT/HCPCS: 99387

== ENCOUNTER 2024-06-19 14:32 | Outpatient (REF) | payer MEDICARE, OTHER, SELFPAY ==
[2024-06-20 08:56] LABS: HPV 16,18/45 See PAP report
== END 2024-06-19 14:33 | disposition home or self-care (01) ==
LOC: HO.LNP 14:32
PROVIDERS: PCP Nurse Practitioner Family; Visit Provider Advanced Practice Midwife
DX: Z01.419 Encounter for gynecological examination (general) (routine) without abnormal findings (principal); R19.00 Intra-abdominal and pelvic swelling, mass and lump, unspecified site
CPT/HCPCS: 87624; 88175; 99387

== ENCOUNTER 2024-07-09 12:07 | Outpatient (REF) | payer MEDICARE, OTHER, SELFPAY ==
[2024-07-09 16:22] LABS: MANUAL DIFF FLAG NO
[2024-07-09 16:28] LABS: Basophils Absolute Auto 0.1 X10*3/uL (0.0-0.2); Basophils Percent Auto 0.6 % (0-2); Eosinophils Absolute Auto 0.2 X10*3/uL (0.0-0.4); Eosinophils Percent Auto 2.5 % (0-4); Hematocrit 38.3 % (37.0-47.0); Hemoglobin 12.9 g/dl (12.0-16.0); Imm Gran Abs Auto 0.04 X10*3/uL (0.00-0.03); Imm Gran Pct Auto 0.5 % (0.0-0.4); Lymphocytes Absolute Auto 2.4 X10*3/uL (1.2-4.9); Lymphocytes Percent Auto 29.2 % (20-40); Mean Corpuscular HGB Conc 33.7 g/dl (31.0-35.0); Mean Corpuscular Hemoglobin 29.9 pg (27.0-33.0); Mean Corpuscular Volume 88.9 fL (80.0-98.0); Mean Platelet Volume 9.9 fL (9.4-12.3); Monocytes Absolute Auto 0.6 X10*3/uL (0.1-1.2); Monocytes Percent Auto 7.6 % (2-11); Neutrophils Percent Auto 59.6 % (45-73); Platelet Count 255 X10*3/uL (160-400); Red Blood Count 4.31 X10*6/uL (4.20-5.50); Red Cell Distribution Width 13.1 % (11.0-16.0); White Blood Count 8.3 X10*3/uL (4.8-10.8)
[2024-07-09 17:16] LABS: Gamma Glutamyl Transpeptidase 27 U/L (7-33)
[2024-07-09 17:32] LABS: TSH reflex Free T4 1.74 uIU/mL (0.32-4.0)
[2024-07-12 13:43] LABS: Alk.Phos Iso. Macrohepatic 0 % (<=0); Alk.Phos Isoenzymes Bone 23 % (28-66); Alk.Phos Isoenzymes Intest 6 % (1-24); Alk.Phos Isoenzymes Liver 71 % (25-69); Alk.Phos Isoenzymes Placental 0 % (<=0); Alk.Phos Isoenzymes Total 116 U/L (37-153)
== END 2024-07-09 12:08 | disposition home or self-care (01) ==
LOC: HO.HMGCLDS 12:07
PROVIDERS: PCP Nurse Practitioner Family; Visit Provider Nurse Practitioner Family
DX: R74.8 Abnormal levels of other serum enzymes (principal); E78.5 Hyperlipidemia, unspecified; Z23 Encounter for immunization
CPT/HCPCS: 36415; 82977; 84080; 84443; 85025; 90471; 90677; 96127; 99202

== ENCOUNTER 2024-07-09 12:07 | Outpatient (AMB) | payer MEDICARE, SELFPAY ==
[2024-07-09 12:16] VITALS: BP 128/70; PULSE 79; O2SAT 98; BMI 28.1
--- NOTE | 2024-07-09 12:16 | A.OFFPC_ITS ---
Vital Signs 07/09/24 12:16 Height 5 ft 6 in Weight 174 lb BMI 28.1 BP 128/70 Blood Pressure Location Rt brachial Position Sitting Pulse 79 Pulse Source Pulse Oximeter Pulse Oximetry (%) 98 Intake Visit Reasons: MIRTA/ Kirk/ follow up Intake Note: pt is here for est care, [facility] Etl Programmer Required: No Accompanied by: Self / Same As Patient Allergies jayla Allergy (Severe, Verified 07/09/24 12:17) Rash No Known Drug Allergies Allergy (Unknown, Verified 07/09/24 12:17) none hayfever Allergy (Unknown, Uncoded 05/21/24 10:23) Unknown Tobacco use date assessed: 02/27/24 Fall risk assessment: No Falls in past year Last assessed Fall Risk: 07/09/24 Dental Screening Dental Screen Date: 02/27/24 HPI MIRTA/ Kirk/ follow up HPI Details new pt to me. Alk phos noted to be elevated. Want to repeat this with a isoenzyme break down. Pt denies any abd pains, fevers, chills, N/V. Bone density is up to date, osteopenia noted. Dyslipidemia: on a statin, will recheck [facility] Medical History (Updated 07/09/24 @ 13:15 by LG Jim) Pelvic fullness Hypertension Mitral regurgitation Hyperlipidemia Post-menopause History of low back pain Surgical History History of mandibular surgery Family History Brother Congestive heart failure Brother Congestive heart failure Brother Myocardial infarction Father Myocardial infarction Maternal Aunt History of breast cancer, Onset Age: 39 Social History Housing: Apartment Patient Tobacco Use Status: Former Tobacco user Tobacco use type: Cigarette Cigarette Packs Per Day: 2 Years Smoked: 30 Second Hand Smoke Exposure: No service: No Current occupational status: employed 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 1. Little interest or pleasure in doing things: not at all 2. Feeling down, depressed, or hopeless: not at all 3. Trouble falling or staying asleep, or sleeping too much: not at all 4. Feeling tired or having little energy: not at all 5. Poor appetite or overeating: not at all 6. Feeling bad about yourself - or that you are a failure or have let yourself or your family down: not at all 7. Trouble concentrating on things, such as reading the newspaper or watching television: not at all 8. Moving or speaking so slowly that other people could have noticed. Or the opposite - being so fidgety or restless that you have been moving around a lot more than usual: not at all 9. Thoughts that you would be better off or of hurting yourself in some way: not at all Total score: 0 Depression Screening Interpretation: Negative Depression Screening Done: Yes 66860 - PHQ-9 Billing: Yes Source: Developed by Drs. Thomas Yeung, Jocy Hemphill, Michel Colmenares and colleagues, with an educational missy from [employer]. Thrive Questionnaire Date Thrive assessed: 07/09/24 I am a: Patient What is your living situation today?: I have a steady place to live Within the past 12 months, did the food you bought not last and you didn't have the money to get more?: Never true Within the past 12 months, did you worry whether your food would run out before you got money to buy more?: Never true Do you have trouble paying for medicines?: No Do you have trouble getting transportation to medical appointments?: No Do you have trouble paying your heating and electricity bill?: No Do you have trouble taking care of your child, family member or friend?: No Do you have trouble with day-to-day activities such as bathing, preparing meals, shopping, managing finances, etc.?: No Are you currently unemployed and looking for a job?: No Are you interested in more education?: No Please select the resources that you would like help with: None Currently or been in a relationship where the following occur: No concerns reported THRIVE Score: 0 AUDIT C Alcohol Use Questionnaire (AUDIT-C) 1. How often do you have a drink containing alcohol?: Never 3. How often do you have six or more drinks on one occasion?: Never Total Score: 0 Score Reviewed/Action Taken: Yes LESTER-7 AMB Questionnaire LESTER-7 Date LESTER - 7 assessed: 07/09/24 Feeling nervous, anxious, or on edge: 0 = Not at all Not being able to stop or control worryin = Not at all Worrying too much about different things: 0 = Not at all Trouble relaxin = Not at all Being so restless that it is hard to sit still: 0 = Not at all Becoming easily annoyed or irritable: 1 = Several days Feeling afraid as if something awful might happen: 0 = Not at all Total LESTER-7 score (0-4 normal; 5-9 mild; 10-14 moderate; 15-21 severe): 1 Source: Developed by Drs. Thomas Yeung, Jocy Hemphill, Michel Colmenares and colleagues, with an educational missy from [employer]. LESTER-7 Assessment Billing LESTER-7 Assessment Tool: LESTER-7 Assessment 08654 Physical exam (Primary Care) Vital Signs: Last Vital Signs Pulse 79 07/09/24 12:16 BP 128/70 07/09/24 12:16 Pulse Ox 98 07/09/24 12:16 BMI result Body Mass Index 28.1 Tobacco/Smoking Status: Tobacco use Status Tobacco use date assessed 02/27/24 07/09/24 12:17 Patient Tobacco Use Status Former Tobacco user 07/09/24 12:17 Tobacco use type Cigarette 07/09/24 12:17 PHQ-9: PHQ-9 Score PHQ-9: Total score 0 07/09/24 13:07 Depression Screening Interpretation: Negative Thrive Assessment: Date of Thrive Assessment Date Thrive assessed 07/09/24 07/09/24 12:17 Currently or been in a relationship where the following occur: No concerns reported Const General: cooperative, healthy appearing and comfortable Resp Effort & Inspection: normal respiratory effort Auscultation: clear to auscultation bilaterally Cardio Rate: regular rate Rhythm: regular rhythm Heart sounds: S1 normal heart sound present, S2 normal heart sound present and Murmur heart sound present systolic (faint) Skin Other: left external nose with large macular, slightly raised dry lesion. Extrem Right lower extremity: no edema Left lower extremity: no edema Psych Appearance: grossly normal Mental Status: mental status grossly normal Speech and movement: Normal speech and movement present Affect: normal affect Attitude: cooperative Thought process: Normal thought process present Thought content: Normal thought content present Insight: Good insight present (Psych) Judgement: Good judgement present (Psych) Immunizations pneumoc 20-pierre conj-dip cr(PF) 0.5 mL IM syringe Performing Provider: LG Jim [place] [facility] [place] [facility] Administered by: Nate Waggoner CMA on 07/09/24 13:37 Dose Route Admin Location Dispensed Lot Number Expiration Date NDC Mine Manager 0.5 mL IM Right Deltoid 0.5 mL [id number] 09/09/25 6749-7188-09 [employer]PP[employer] VIS Given Date VIS Provided VIS Publication Date 07/09/24 Single Vaccine 21 Eligibility Eligibility Date Funding Source Not [facility] Eligible 07/09/24 Private Coding Level of Care Code New Pt Level 3 (36430) Diagnoses Elevated alkaline phosphatase level R74.8 Skin lesion L98.9 Hyperlipidemia, unspecified hyperlipidemia type E78.5 Hyperlipidemia type: unspecified Additional Codes LESTER-7 Assessment Billing - LESTER-7 Assessment Tool: LESTER-7 Assessment 17330 ([id number]) PHQ-9 - 35346 - PHQ-9 Billing: Yes ([id number]) Assessment & Plan Assessment & Plan (1) Elevated alkaline phosphatase level: Code(s): R74.8 - Abnormal levels of other serum enzymes Category: Medical Plan: alk phos isoenzyme breakdown ordered, bone density is up to date (2) Skin lesion: Code(s): L98.9 - Disorder of the skin and subcutaneous tissue, unspecified Category: Medical (3) Hyperlipidemia: Code(s): E78.5 - Hyperlipidemia, unspecified Category: Medical Qualifiers: Hyperlipidemia type: unspecified Qualified Code(s): E78.5 - Hyperlipidemia, unspecified Plan: will cont to monitor, on atorvastatin Plan as above Orders: Orders Gamma Glutamyl Transpeptidase Today R74.8 - Abnormal levels of other serum enzymes Comprehensive [place]. Panel Fast Today E78.5 - Hyperlipidemia, unspecified TSH reflex Free T4 Today E78.5 - Hyperlipidemia, unspecified Lipid Panel Today E78.5 - Hyperlipidemia, unspecified Alkaline Phosphatase Isoenzyme Today R74.8 - Abnormal levels of other serum enzymes Complete Blood Count Auto Diff Today E78.5 - Hyperlipidemia, unspecified UA CC w/rflx Micro + Cult Today E78.5 - Hyperlipidemia, unspecified Pneumococcal 20 Immunization Today Z23 - Encounter for immunization Referrals Dermatology Referral L98.9 - Disorder of the skin and subcutaneous tissue, unspecified
== END 2024-07-09 14:42 | disposition home or self-care (01) ==
PROVIDERS: PCP Nurse Practitioner Family; Visit Provider Nurse Practitioner Family
DX: R74.8 Abnormal levels of other serum enzymes (principal); L98.9 Disorder of the skin and subcutaneous tissue, unspecified; E78.5 Hyperlipidemia, unspecified; Z23 Encounter for immunization

== ENCOUNTER 2024-07-24 15:08 | Outpatient (REF) | payer MEDICARE, OTHER, SELFPAY ==
--- NOTE | ~2024-07-24 | US_ITS ---
EXAMINATION: US PELVIS CLINICAL INFORMATION: Pelvic fullness. R19.00 COMPARISON: None available. TECHNIQUE: Ultrasound of the pelvis is performed using both transabdominal and transvaginal transducers along with Doppler. Transvaginal imaging is performed due to inadequate visualization transabdominally. FINDINGS: Uterus: The uterus is anteverted, anteflexed and measures 5.5 x 1.4 x 2.7 cm. Normal-appearing cervix. The double wall endometrial thickness is 1.4 mm. The uterus is smooth in contour and has normal myometrial echogenicity. No visible fibroid. Adnexa: Right ovary could not be seen and was obscured by overlying bowel. There is normal color flow to the left adnexa. There is no left ovarian torsion. There is no pelvic ascites or fluid collection. No adnexal masses. Right ovary: Not visualized. Left ovary measures 0.9 x 0.7 x 0.9 cm. Volume = 0.3 mL. Normal sonographic appearance. US/US pelvic and transvaginal IMPRESSION: 1. Mild limitation due to bowel gas with nonvisualization of the right ovary. 2. Normal left ovary, normal endometrium, and normal uterus Electronically signed by: Chandan Almanzar MD 09/19/2024 02:27 [place] [facility] [place]
== END 2024-07-24 15:09 | disposition home or self-care (01) ==
LOC: HO.US 15:08
PROVIDERS: PCP Nurse Practitioner Family; Visit Provider Advanced Practice Midwife
DX: R19.00 Intra-abdominal and pelvic swelling, mass and lump, unspecified site (principal)
CPT/HCPCS: 76830; 76856

== ENCOUNTER → 2024-07-24 15:10 | Outpatient (BNV) | payer MEDICARE, OTHER, SELFPAY | PROVIDERS: PCP Nurse Practitioner Family; Visit Provider Radiology Diagnostic Radiology | DX: R14.0 Abdominal distension (gaseous) (principal) | CPT/HCPCS: 76830; 76856 ==

== ENCOUNTER 2024-08-03 09:12 | Outpatient (AMB) | payer MEDICARE, OTHER, SELFPAY ==
[2024-08-03 09:23] VITALS: BP 128/74; PULSE 92; TEMP 36.1; O2SAT 97; BMI 28.1
--- NOTE | 2024-08-03 09:23 | AM.OFFWIN_ITS ---
Intake Vital Signs 08/03/24 09:23 Height 5 ft 6 in Weight 174 lb BMI 28.1 BP 128/74 Blood Pressure Location Rt brachial Position Sitting Pulse 92 Pulse Source Pulse Oximeter Temp 97.0 F Temp Source Oral Pulse Oximetry (%) 97 Intake Visit Reasons: EP cold symptoms Patient Tobacco Use Status: Former Tobacco user Allergies ajyla Allergy (Severe, Verified 08/03/24 09:23) Rash No Known Drug Allergies Allergy (Unknown, Verified 08/03/24 09:23) none hayfever Allergy (Unknown, Uncoded 05/21/24 10:23) Unknown Do you need a note to return to daycare/school/sports/work: No HPI HPI Comments History of Present Illness Details She presents to office with cough May 21 was seen and given antibiotic and tessalon pearls She felt much better but + symptomatic again She said she has been sick all week Pt said no fevers or chills + phlegm and trying nyquil and dayquil w ith some relief Has used mucinex in past She said + scratchy throat with coughing No ear pain + congestion PFSH Medical History (Updated 08/03/24 @ 10:47 by Kelsie Pyle PA-C) Pelvic fullness Hypertension Mitral regurgitation Hyperlipidemia Post-menopause History of low back pain Surgical History History of mandibular surgery Family History Brother Congestive heart failure Brother Congestive heart failure Brother Myocardial infarction Father Myocardial infarction Maternal Aunt History of breast cancer, Onset Age: 39 Social History Housing: Apartment Patient Tobacco Use Status: Former Tobacco user Tobacco use type: Cigarette Cigarette Packs Per Day: 2 Years Smoked: 30 Second Hand Smoke Exposure: No service: No Current occupational status: employed 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 Speaking full sentences. Skin: Warm dry throughout Eye: EOMI HENT: Airway patent. Uvula midline. No pharyngeal erythema or edema. No APPLICATION SOFTWARE DEVELOPER. Bilateral canals clear. TM non-erythematous, non-bulging. No TM perforation or hemotympanum noted. Respiratory: Slight rhonchi bilaterally without wheezes or rales Cardiac: RRR. No murmur Neurology: A/O. No aphasia or facial droop. Gait without abnormality Psych: Good mood and affect Assessment & Plan Assessment & Plan (1) Bronchitis: Code(s): J40 - Bronchitis, not specified as acute or chronic Plan: Pt seen and evaluated Hx of smoking and bronchitis No rales auscultated but will cover with [place] and yoni F/U with PCP Call with concerns or questions Pt had no questions at time of discharge Medications: New azithromycin start on day 2 of therapy 250 mg PO DAILY 6 tabs 0RF 6 days benzonatate 200 mg PO BID PRN 20 caps 0RF cough Coding Level of Care Code Est Pt Level 3 (76738) Diagnoses Bronchitis J40
== END 2024-08-03 09:49 | disposition home or self-care (01) ==
PROVIDERS: PCP Nurse Practitioner Family; Visit Provider Physician Assistant
DX: J40 Bronchitis, not specified as acute or chronic (principal)

== ENCOUNTER → 2024-08-03 09:12 | Outpatient (BNVA) | payer MEDICARE, OTHER, SELFPAY | PROVIDERS: PCP Nurse Practitioner Family; Visit Provider Physician Assistant | DX: J40 Bronchitis, not specified as acute or chronic (principal) | CPT/HCPCS: 99212 ==

== ENCOUNTER 2024-09-25 14:28 | Outpatient (AMB) | payer MEDICARE, OTHER, SELFPAY ==
--- NOTE | 2024-09-25 14:29 | MHC.OFFVIS ---
Intake Visit Reasons: Ultra sound follow up Intake Note: cell #[phone] Allergies jayla Allergy (Severe, Verified 08/03/24 09:23) Rash No Known Drug Allergies Allergy (Unknown, Verified 08/03/24 09:23) none hayfever Allergy (Unknown, Uncoded 05/21/24 10:23) Unknown HPI Comments Details: Tele Health Visit Total time I personally spent on visit and management today: 15 minutes. Time spent included review of pertinent office notes in the electronic health record; review of laboratory and imaging results; discussing diagnosis and plan of care with the patient; documenting the encounter in the EMR. Patient presents to discuss: Ultrasound findings, history of pelvic fullness on exam right side. She denies any pelvic pain. No history of postmenopausal bleeding. Patient deferred video portion of call. [facility] Medical History (Updated 08/03/24 @ 10:47 by Kelsie Pyle PA-C) Pelvic fullness Hypertension Mitral regurgitation Hyperlipidemia Post-menopause History of low back pain Surgical History History of mandibular surgery Family History Brother Congestive heart failure Brother Congestive heart failure Brother Myocardial infarction Father Myocardial infarction Maternal Aunt History of breast cancer, Onset Age: 39 Social History Housing: Apartment Patient Tobacco Use Status: Former Tobacco user Tobacco use type: Cigarette Cigarette Packs Per Day: 2 Years Smoked: 30 Second Hand Smoke Exposure: No service: No Current occupational status: employed 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 Cognitive needs: No Hearing needs: No Vision needs: No Telehealth Telehealth Telehealth Platform: Telephone Location of provider rendering services: practice address Location of patient: address on file Patient Identification confirmed using: Name, : Yes Telehealth method: voice only Patient verbally consented to treatment: Yes Patient verbally consented to billing insurance company: Yes Patient informed of any privacy concerns related to visit: Yes Results Reviewed Results Reviewed: [address] [address] Ultrasound Report Signed Patient: Pippa Case MR#: [id number] : 1955 Acct:[id number] Age/Sex: 68 / F ADM Date: 07/24/24 Loc: HO.US Attending Dr: Monica Seals CNM Ordering Physician: Monica Seals CNM Date of Service: 07/24/24 Procedure(s): US pelvic and transvaginal Accession Number(s): [id number] cc: Gilbert Cota PUNCH MACHINE OPERATOR-; Monica Seals CNM~ EXAMINATION: US PELVIS CLINICAL INFORMATION: Pelvic fullness. R19.00 COMPARISON: None available. TECHNIQUE: Ultrasound of the pelvis is performed using both transabdominal and transvaginal transducers along with Doppler. Transvaginal imaging is performed due to inadequate visualization transabdominally. FINDINGS: Uterus: The uterus is anteverted, anteflexed and measures 5.5 x 1.4 x 2.7 cm. Normal-appearing cervix. The double wall endometrial thickness is 1.4 mm. The uterus is smooth in contour and has normal myometrial echogenicity. No visible fibroid. Adnexa: Right ovary could not be seen and was obscured by overlying bowel. There is normal color flow to the left adnexa. There is no left ovarian torsion. There is no pelvic ascites or fluid collection. No adnexal masses. Right ovary: Not visualized. Left ovary measures 0.9 x 0.7 x 0.9 cm. Volume = 0.3 mL. Normal sonographic appearance. US/US pelvic and transvaginal IMPRESSION: 1. Mild limitation due to bowel gas with nonvisualization of the right ovary. 2. Normal left ovary, normal endometrium, and normal uterus Electronically signed by: Chandan Almanzar MD 09/19/2024 02:27 PM [facility] [place] Dictated By: Chandan Almanzar MD Signed By: <Electronically signed by Chandan Almanzar MD in OV> 09/19/24 1427 DD/ 1531 TD/TT: 07/24/24 1543 Quill Worker: Assessment & Plan Assessment & Plan (1) Encounter to discuss test results: Code(s): Z71.2 - Person consulting for explanation of examination or test findings Plan Discussed: Ultrasound findings right ovary could not be visualized, endometrial lining was noted thickened at 1.4 mm. Patient is not having any discomfort. Ultrasound limitations due to the gas/bowel obstructing the right ovary. Advised to call if there is any changes and she feels any discomfort on the right side for further evaluation. Advised to call if there is any postmenopausal bleeding. The patient expressed understanding and agreement with the plan of care. All of her questions and concerns were addressed to the best of my ability. This note is constructed using voice recognition software. While every effort has been made to ensure accuracy, biofuels production manager errors may have been included. Coding Level of Care Code Tele Est Pt Level 2 (99758) Diagnoses Encounter to discuss test results Z71.2
== END 2024-09-25 16:47 | disposition home or self-care (01) ==
LOC: HO.HWS 14:28
PROVIDERS: PCP Nurse Practitioner Family; Visit Provider Advanced Practice Midwife
DX: R19.00 Intra-abdominal and pelvic swelling, mass and lump, unspecified site (principal); Z71.2 Person consulting for explanation of examination or test findings
CPT/HCPCS: 98016

== ENCOUNTER → 2024-09-25 14:28 | Outpatient (BNVA) | payer MEDICARE, OTHER, SELFPAY | PROVIDERS: PCP Nurse Practitioner Family; Visit Provider Advanced Practice Midwife ==

== ENCOUNTER 2024-10-21 13:43 | Outpatient (REF) | payer SELFPAY ==
--- NOTE | 2024-10-21 14:16 | MHC.AU.HA3 ---
Hearing Instrument Follow-Up- Binaural Date of Visit: 10/21/24 Right Ear: Make, Model, Color, Serial Number: Oticon Real 2 miniRITE-R SN: [id number] Color: Silver Plastic Printer Repair Warranty: 10/27/2026 Plastic Printer Loss and Damage Warranty: 10/27/2026 [facility] Service Plan: OPTED OUT Battery Size: Rechargeable Summer Sessions Director/Slim Tube: 2/85 Earmold/Dome/CShell/SlimTip:6mm double brunner dome (no retention tail) Type of Wax Guard: miniFit Dispensed By: [facility] Date of Fittin10/10/2023 Left Ear: Make, Model, Color, Serial Number: Oticon Real 2 miniRITE-R SN: [id number] Color: Silver Old SN (LOST): [id number] Plastic Printer Repair Warranty: 10/27/2026 Plastic Printer Loss and Damage Warranty: USED [facility] Service Plan: OPTED OUT Battery Size: Rechargeable Summer Sessions Director/Slim Tube: 2/85 Earmold/Dome/CShell/SlimTip: 6mm double brunner dome (no retention tail) Type of Wax Guard: miniFit Dispensed By: [facility] Date of Fittin10/10/2023 Follow-Up Summary: Pippa Roach is seen with both hearing aids charging but not producing sound. Found both wax guards clogged. Reviewed procedure to replace domes and wax guards. Listening check positive. Recommendations: Recommendations: Hearing instrument follow-up or maintenance as needed. Diagnosis Code(s): Primary Diagnosis: H90.3 Bilateral Sensorineural Hearing Loss Signature: Provider: Eri Nieves, [facility]
--- OUTSIDE RECORDS SUMMARY | 2024-10-21 16:15 | XMS_ITS | Patient Health Record ---
Author Organization [facility] Address [address] [place] [address] Support Name Relationship Address Phone ROBERT HALE Guarantor Unknown Reason For Referral No Information Problems Problem Type SNOMED Code ICD Code Onset Dates Problem Status W/U Status Risk Notes Problem Menopausal symptom (90303000) Symptomatic menopausal or female climacteric states (627.2) Active confirmed Major Problem Gynecological examination normal (964695146079825) Routine gynecological examination (V72.31) Active confirmed Major Problem Screening for malignant neoplasm of colon (813234216) Special screening for malignant neoplasms, colon (V76.51) Active confirmed Major Plan Of Treatment No Information
== END 2024-10-21 13:44 | disposition home or self-care (01) ==
LOC: HO.HAP 13:43
PROVIDERS: Visit Provider Nurse Practitioner Family
DX: Z46.1 Encounter for fitting and adjustment of hearing aid (principal); H90.3 Sensorineural hearing loss, bilateral
CPT/HCPCS: 92593; V5267

== ENCOUNTER 2024-11-23 09:07 | Outpatient (AMB) | payer MEDICARE, OTHER, SELFPAY ==
--- OUTSIDE RECORDS SUMMARY | 2024-11-23 09:08 | XMS_ITS | Patient Health Record ---
Author Organization [facility] Address [address] [place] [address] Support Name Relationship Address Phone ROBERT HALE Guarantor Unknown Reason For Referral No Information Problems Problem Type SNOMED Code ICD Code Onset Dates Problem Status W/U Status Risk Notes Problem Menopausal symptom (74375027) Symptomatic menopausal or female climacteric states (627.2) Active confirmed Major Problem Gynecological examination normal (088509682936560) Routine gynecological examination (V72.31) Active confirmed Major Problem Screening for malignant neoplasm of colon (804491620) Special screening for malignant neoplasms, colon (V76.51) Active confirmed Major Plan Of Treatment No Information
--- NOTE | 2024-11-23 09:25 | AM.OFFWIN_ITS ---
Intake Vital Signs 11/23/24 09:26 Height 5 ft 6 in Weight 174 lb BMI 28.1 BP 130/70 Blood Pressure Location Lt brachial Position Sitting Pulse 90 Pulse Source Pulse Oximeter Temp 98.0 F Temp Source Oral Pulse Oximetry (%) 98 Oxygen Delivery Method Room Air Intake Visit Reasons: EP- Sore Throat Patient Tobacco Use Status: Former Tobacco user Allergies jayla Allergy (Severe, Verified 11/23/24 09:29) Rash No Known Drug Allergies Allergy (Unknown, Verified 11/23/24 09:29) none hayfever Allergy (Unknown, Uncoded 11/23/24 09:29) Unknown Medication List - Last Reconciled 11/23/24 by Yumiko Hansen, DREW-PATRICIA atorvastatin 20 mg PO DAILY lisinopril 5 mg PO DAILY Do you need a note to return to daycare/school/sports/work: No HPI HPI Comments History of Present Illness Details History - The patient is a 69-year-old female pr esenting with a sore throat and dry cough. PMHx sig for HTN. Taking Lisinopril. BP at goal. No cardiac complaints. - Symptoms started approximately three d ays prior and involve more discomfort on the left side, especially during swallowing. - The patient reports experiencing runny nose and itchy eyes, but denies significant fever. + seasonal allergies - Historical context includes annual epi sodes of bronchitis with effectiveness of antibiotics in previous instances. - Dplj-jnc-pydqkec medications like DayQ uil, NyQuil, and cough suppressants have been used, and at least some relief was obtained. Specifically with tessalon. Physical Exam General: Awake, alert. No apparent distress Eyes: Sclera and conjunctiva clear bilaterally Nose: Nares patent, turbinates within normal limits, no sinus tenderness with palpation bilaterally Ears: Tympanic membranes intact and clear bilaterally Throat: Moist mucosa membrane, pharynx within normal limits, mucus present in throat Cardiovascular: Regular rate and rhythm Respiratory: Clear to auscultation bilaterally Results - Swab test negative for Streptococcal i nfection. Discussion Notes I discussed with the patient the current negative results for a Streptococcal infection and the likelihood that her symptoms stem from a viral upper respiratory tract infection, which doesn?t require antibiotics. The patient was receptive to the suggestion of supportive care being the primary focus, including the use of OTC medications like cough suppressants, gargles, and anti- inflammatories such as Tylenol or Advil in addressing discomfort. Guidance about monitoring and using these treatments was provided, with clear instructions regarding indicators for when to further evaluate worsening symptoms, such as persistent sore throat beyond 10 days or the development of fever. We concurred that additional diagnostic testing was not warranted unless symptoms worsened or did not fred. Future options involve follow up if the symptoms exacerbate or new symptoms arise, including fever or extended duration. Assessment and Plan 1. Upper Respiratory Tract Infection: Th e evaluation leads to a likely diagnosis of a viral upper respiratory tract infection, evidenced by the negative strep result and current presentation of symptoms. We focus on symptomatic relief using OTC medications and cough suppressants. Emphasis is on supportive treatm ent measures including saline gargles to ease throat discomfort and anti- inflammatory medications to manage pain. We decided not to use antibiotics unless symptoms indicate or persist. 2. Hypertension: The patient's hypertens ion is being managed with lisinopril 5 mg. Cont. Patient Instructions - Use cough suppressants to help allevia te the dry cough. - Gargle with saline or use throat spray s for relief from throat discomfort. - Continue using DayQuil or NyQuil as ne eded for associated symptoms, ensuring to adhere to dosing recommendations. - Monitor symptoms and seek reevaluation if the sore throat persists beyond 10 days or if any fever develops. - Maintain hydration and rest to support recovery. - Follow your existing lisinopril regime n for hypertension management. Consent The patient expressed understanding of the expected course of her upper respiratory symptoms and agreed with the planned conservative treatment approach. Consent was implied for the self-administration of OTC medications as reinforced during the discussion. She acknowledged the decision not to pursue antibiotics based on evaluation results during this visit. Patient was informed and verbally consented to the use of an ambient scribe for clinic note documentation during this visit. COUNT INCLUDES THE [facility] Medical History (Updated 11/23/24 @ 09:43 by LG Rivers) History of low back pain Hyperlipidemia Hypertension Mitral regurgitation Pelvic fullness Post-menopause Surgical History History of mandibular surgery Family History Brother Congestive heart failure Brother Congestive heart failure Brother Myocardial infarction Father Myocardial infarction Maternal Aunt History of breast cancer, Onset Age: 39 Social History Housing: Apartment Patient Tobacco Use Status: Former Tobacco user Tobacco use type: Cigarette Cigarette Packs Per Day: 2 Years Smoked: 30 Second Hand Smoke Exposure: No service: No Current occupational status: employed 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 Cognitive needs: No Hearing needs: No Vision needs: No Physical Exam Vital Signs: Last Vital Signs Temp 98.0 F 11/23/24 09:26 Pulse 90 11/23/24 09:26 BP 130/70 11/23/24 09:26 Pulse Ox 98 11/23/24 09:26 Oxygen Delivery Method Room Air 11/23/24 09:26 BMI result Body Mass Index 28.1 Results AMB Rapid Strep AMB Rapid Strep Negative Last Edit by Nate Waggoner CMA on 11/23/24 09 :42 Assessment & Plan Assessment & Plan (1) Viral pharyngitis: Code(s): J02.9 - Acute pharyngitis, unspecified (2) Viral URI with cough: Code(s): J06.9 - Acute upper respiratory infection, unspecified Plan: . (3) Hypertension: Comment: on lisinopril. She has been educated on the side effects of these medications. Code(s): I10 - Essential (primary) hypertension Qualifiers: Hypertension type: primary hypertension Qualified Code(s): I10 - Essential (primary) hypertension Plan . Medications: New benzonatate 100 mg PO TID 10 days PRN 30 caps 1RF cough Coding Level of Care Code Est Pt Level 4 (93295) Diagnoses Viral pharyngitis J02.9 Viral URI with cough J06.9 Primary hypertension I10 Hypertension type: primary hypertension
[2024-11-23 09:26] VITALS: BP 130/70; PULSE 90; TEMP 36.7; O2SAT 98; BMI 28.1
== END 2024-11-23 10:00 | disposition home or self-care (01) ==
LOC: HO.HMCWIC 09:07
PROVIDERS: PCP Nurse Practitioner Family; Visit Provider Nurse Practitioner Family
DX: J02.9 Acute pharyngitis, unspecified (principal); J06.9 Acute upper respiratory infection, unspecified; I10 Essential (primary) hypertension; Z13.9 Encounter for screening, unspecified

== ENCOUNTER → 2024-11-23 09:07 | Outpatient (BNVA) | payer MEDICARE, OTHER, SELFPAY | PROVIDERS: PCP Nurse Practitioner Family; Visit Provider Nurse Practitioner Family | DX: J02.9 Acute pharyngitis, unspecified (principal); J06.9 Acute upper respiratory infection, unspecified; I10 Essential (primary) hypertension | CPT/HCPCS: 87880; 99212 ==

== ENCOUNTER → 2025-01-24 12:56 | Outpatient (REF) | payer MEDICARE, OTHER, SELFPAY ==
--- OUTSIDE RECORDS SUMMARY | 2025-01-24 12:58 | XMS_ITS | Patient Health Record ---
Author Organization Total [facility] Address [address] [place] [address] Support Name Relationship Address Phone ROBERT HALE Guarantor Unknown Reason For Referral No Information Problems Problem Type SNOMED Code ICD Code Onset Dates Problem Status W/U Status Risk Notes Problem Menopausal symptom (78387287) Symptomatic menopausal or female climacteric states (627.2) Active confirmed Major Problem Gynecological examination normal (710564441377512) Routine gynecological examination (V72.31) Active confirmed Major Problem Screening for malignant neoplasm of colon (067086342) Special screening for malignant neoplasms, colon (V76.51) Active confirmed Major Plan Of Treatment No Information
--- NOTE | 2025-01-24 12:59 | CA_ITS ---
Transthoracic Echocardiogram Patient (Last, First, Middle): Pippa Case Ellen Gender: Female Date of : 1955 Age: 69 Procedure Date: 01/24/2025 Procedure Type: Transthoracic Echocardiogram Location: OP Height: 167.64 cm Weight: 74.84 kg BSA: 1.84 m2 Heart Rate: bpm BP: 123 / 64 mmHg Blood Bank Supervisor: TO Referring MD: Gilbert Cota [facility] Symptoms: R01.1 - Cardiac murmur, unspecified Study Quality: Fair/Contrast ECG Rhythm: Sinus Conclusions: - The left ventricular systolic function is normal. The calculated ejection fraction is 60% by biplane method. - There is mild tricuspid valve regurgitation. Findings Procedure Information Contrast agent, definity, is being given per protocol without apparent complications. Left Ventricle Normal left ventricular cavity size. There is normal left ventricular wall thickness. The left ventricular systolic function is normal. The calculated ejection fraction is 60% by biplane method. There is no evidence of regional wall motion abnormalities. Diastolic function is normal for age. Right Ventricle Normal right ventricular cavity size and systolic function. Atria Both atria are normal in size. Aortic Valve There is a normal trileaflet aortic valve. There is no aortic valve stenosis. There is trace (trivial) aortic valve regurgitation. Mitral Valve The mitral valve appears normal. There is trace mitral valve regurgitation. There is no mitral valve stenosis. Pulmonic Valve The pulmonic valve is likely normal. Tricuspid Valve Normal tricuspid valve structure. There is mild tricuspid valve regurgitation. There is no evidence of pulmonary hypertension. Great Vessels The asc aorta is normal in size. Venous The inferior vena cava is normal in size and collapses greater than 50% with inspiration. Pericardium/Pleural There is no evidence of pericardial effusion. Prior Study Comparison No significant change compared to prior study dated: 10/04/2023. Measurements 2D Linear Measurements IVSd: 0.86 0.6-0.9/0.6-1.0 cm LVIDd: 3.95 3.9-5.3/4.2-5.9 cm LVIDd Index: 2.15 2.4-3.2/2.2-3.1 cm/m2 LVIDs: 2.42 2.0-3.6 cm LVPWd: 0.74 0.7-1.1 cm LA Diam: 3.30 2.7-3.8/3.0-4.0 cm LAIDs Index: 1.79 1.5-2.3 cm/m2 LV Mass: 113.79 67-162/88-224 g LV Mass Index: 61.84 43-95/49-115 g/m2 LVOT Diam: 2.00 3.0+(-)1.3 cm 2D Systolic Function EF 4C: 61.30 >55% EF 2C: 57.60 >55% EF BiP: 59.80 >55% Mitral Valve MV Pk E: 0.78 MV PK A: 0.67 MV Decel Time: 190.00 E/A: 1.20 E'Lateral: 7.40 E'Medial: 5.98 E/E' Med: 13.10 E/E' Lat: 10.60 PHT: 56.00 MVA PHT: 3.93 Decel [place]: 4.13 Aortic Valve AoV Pk Jeison: 1.43 AoV Mn Jeison: 0.91 AoV VTI: 0.29 AoV Pk Grad: 8.00 Aov Mn Grad: 4.00 RUSS Cont.VTI: 2.35 LVOT LVOT Pk Jeison: 1.07 LVOT Mn Jeison: 0.62 LVOT VTI: 0.22 LVOT Pk Grad: 5.00 LVOT Mn Grad: 2.00 LVOT Diam: 2.00 LVOT Area: 3.14 Diastolic Function MV Pk E: 0.78 MV Pk A: 0.67 E/A: 1.20 E'Medial: 5.98 E/E' Med: 13.10 E' Laterial: 7.40 E/E' Lat: 10.60 Right Ventricle TAPSE (mm): 18.70 TVS' Jeison: 10.80 Tricuspid Valve TR Pk Jeison: 2.12 TR Pk Grad: 18.00 RA Press: 3.00 RVSP: 21.00 Great Vessels Aorta Sinus of Valsalva: 2.94 2.0-3.5 cm Ao Asc: 3.50 2.1-3.4 cm Updated in Other Vendor System with Status of Final Sorin Glaser MD electronically signed on 01/25/2025 12:37:39 PM with status of Final
== END ==
LOC: HO.CARD 12:56
PROVIDERS: PCP Nurse Practitioner Family; Visit Provider Nurse Practitioner Family
DX: R01.1 Cardiac murmur, unspecified (principal)
CPT/HCPCS: 93306; Q9957

== ENCOUNTER → 2025-01-24 12:59 | Outpatient (BNV) | payer MEDICARE, OTHER, SELFPAY | PROVIDERS: PCP Nurse Practitioner Family; Visit Provider Internal Medicine | DX: R01.1 Cardiac murmur, unspecified (principal); I36.1 Nonrheumatic tricuspid (valve) insufficiency | CPT/HCPCS: 93306 ==

== ENCOUNTER 2025-02-19 12:46 | Outpatient (REF) | payer MEDICARE, OTHER, SELFPAY ==
--- OUTSIDE RECORDS SUMMARY | 2025-02-19 13:15 | XMS_ITS | Patient Health Record ---
Author Organization Total [facility] Address [address] [place] [address] Support Name Relationship Address Phone ROBERT HALE Guarantor Unknown [phone] Reason For Referral No Information Problems Problem Type SNOMED Code ICD Code Onset Dates Problem Status W/U Status Risk Notes Problem Symptomatic menopausal or female climacteric states (627.2) Active confirmed Major Problem Gynecological examination normal (720172311250997) Routine gynecological examination (V72.31) Active confirmed Major Problem Screening for malignant neoplasm of colon (335006999) Special screening for malignant neoplasms, colon (V76.51) Active confirmed Major Plan Of Treatment No Information
[2025-02-19 16:01] LABS: MANUAL DIFF FLAG NO
[2025-02-19 16:13] LABS: Hematocrit 37.9 % (37.0-47.0); Hemoglobin 12.5 g/dl (12.0-16.0); Imm Gran Abs Auto 0.02 X10*3/uL (0.00-0.03); Imm Gran Pct Auto 0.2 % (0.0-0.4); Lymphocytes Absolute Auto 2.0 X10*3/uL (1.2-4.9); Mean Corpuscular HGB Conc 33.0 g/dl (31.0-35.0); Mean Corpuscular Hemoglobin 29.4 pg (27.0-33.0); Mean Corpuscular Volume 89.2 fL (80.0-98.0); NRBC Abs Auto 0.000 X10*3/uL (0.0-0.012); NRBC Pct Auto 0.0 /100WBC (0.0-0.2); Platelet Count 273 X10*3/uL (160-400); Red Blood Count 4.25 X10*6/uL (4.20-5.50); White Blood Count 8.3 X10*3/uL (4.8-10.8)
[2025-02-19 16:27] LABS: Alanine Aminotransferase 18 U/L (0-31); Albumin Level 4.2 g/dL (3.5-5.0); Alkaline Phosphatase 152 U/L (39-117); Anion Gap 14 (12-20); Aspartate Amino Transferase 25 U/L (5-31); Blood Urea Nitrogen 11 mg/dL (9-16); Calcium 9.5 mg/dL (8.4-10.2); Carbon Dioxide 26 mmol/L (22-29); Chloride 108 mmol/L (96-108); Cholesterol 126 mg/dL (<200); Estimated Glomerular Filt Rate > 60; HDL Cholesterol 49 mg/dL (>40); Potassium 3.4 mmol/L (3.3-5.1); Sodium 145 mmol/L (135-145); Total Protein 7.4 g/dL (6.5-8.0); Triglycerides 91 mg/dL (<150)
== END 2025-02-19 12:47 | disposition home or self-care (01) ==
LOC: HO.HMGCLDS 12:46
PROVIDERS: PCP Nurse Practitioner Family; Visit Provider Nurse Practitioner Family
DX: I10 Essential (primary) hypertension (principal); E78.5 Hyperlipidemia, unspecified; E55.9 Vitamin D deficiency, unspecified
CPT/HCPCS: 36415; 80053; 80061; 82306; 84443; 85025

== ENCOUNTER 2025-02-24 11:15 | Outpatient (REF) | payer MEDICARE, OTHER, SELFPAY ==
--- OUTSIDE RECORDS SUMMARY | 2025-02-24 13:18 | XMS_ITS | Patient Health Record ---
Author Organization [facility] Address [address] [place] [address] Support Name Relationship Address Phone ROBERT HALE Guarantor Unknown [phone] Reason For Referral No Information Problems Problem Type SNOMED Code ICD Code Onset Dates Problem Status W/U Status Risk Notes Problem Menopausal symptom (17113332) Symptomatic menopausal or female climacteric states (627.2) Active confirmed Major Problem Gynecological examination normal (828739770841964) Routine gynecological examination (V72.31) Active confirmed Major Problem Screening for malignant neoplasm of colon (365168785) Special screening for malignant neoplasms, colon (V76.51) Active confirmed Major Plan Of Treatment No Information
[2025-02-24 16:33] LABS: Appearance Urine Turbid; Glucose Urine UA Negative (Negative); PH 5.5 (5.0-9.0); Specific Gravity - Urine 1.020 (1.005-1.025); UMIC TRIGGER UACC YES
== END 2025-02-24 11:16 | disposition home or self-care (01) ==
LOC: HO.HMGCLNP 11:15
PROVIDERS: PCP Nurse Practitioner Family; Visit Provider Nurse Practitioner Family
DX: I10 Essential (primary) hypertension (principal); E78.5 Hyperlipidemia, unspecified
CPT/HCPCS: 81001

== ENCOUNTER 2025-02-25 12:55 | Outpatient (REF) | payer SELFPAY ==
--- OUTSIDE RECORDS SUMMARY | 2025-02-25 13:35 | XMS_ITS | Patient Health Record ---
Author Organization [facility] Address [address] [place] [address] Support Name Relationship Address Phone ROBERT HALE Guarantor Unknown Reason For Referral No Information Problems Problem Type SNOMED Code ICD Code Onset Dates Problem Status W/U Status Risk Notes Problem Menopausal symptom (96830622) Symptomatic menopausal or female climacteric states (627.2) Active confirmed Major Problem Gynecological examination normal (065172230365655) Routine gynecological examination (V72.31) Active confirmed Major Problem Screening for malignant neoplasm of colon (561489930) Special screening for malignant neoplasms, colon (V76.51) Active confirmed Major Plan Of Treatment No Information
--- NOTE | 2025-02-25 13:39 | MHC.AU.HA3 ---
Hearing Instrument Follow-Up- Binaural Date of Visit: 02/25/25 Right Ear: Make, Model, Color, Serial Number: Oticon Real 2 miniRITE-R SN: [id number] Color: Silver Station Helper Repair Warranty: 10/27/2026 Station Helper Loss and Damage Warranty: 10/27/2026 [facility] Service Plan: OPTED OUT Battery Size: Rechargeable Field Enumerator/Slim Tube: 2/85 Earmold/Dome/CShell/SlimTip:6mm double brunner dome (no retention tail) Type of Wax Guard: miniFit Dispensed By: [facility] Date of Fittin10/10/2023 Left Ear: Make, Model, Color, Serial Number: Oticon Real 2 miniRITE-R SN: [id number] Color: Silver Old SN (LOST): [id number] Station Helper Repair Warranty: 10/27/2026 Station Helper Loss and Damage Warranty: USED [facility] Service Plan: OPTED OUT Battery Size: Rechargeable Field Enumerator/Slim Tube: 2/85 Earmold/Dome/CShell/SlimTip: 6mm double brunner dome (no retention tail) Type of Wax Guard: miniFit Dispensed By: [facility] Date of Fittin10/10/2023 Follow-Up Summary: Aids dropped off for cleaning, weak . Found debris on domes and in wax guards. Cleaned aids, replaced domes and wax guards. Listening check positive. Recommendations: Recommendations: Hearing instrument follow-up or maintenance as needed. Diagnosis Code(s): Primary Diagnosis: H90.3 Bilateral Sensorineural Hearing Loss Signature: Provider: Eri Nieves, [facility]
== END 2025-02-25 12:56 | disposition home or self-care (01) ==
LOC: HO.HAP 12:55
PROVIDERS: Visit Provider Nurse Practitioner Family
DX: Z46.1 Encounter for fitting and adjustment of hearing aid (principal); H90.3 Sensorineural hearing loss, bilateral
CPT/HCPCS: 92593

== ENCOUNTER 2025-02-27 13:49 | Outpatient (AMB) | payer MEDICARE, OTHER, SELFPAY ==
--- OUTSIDE RECORDS SUMMARY | 2025-02-27 13:52 | XMS_ITS | Patient Health Record ---
Author Organization Total [facility] Address [address] [place] [address] Support Name Relationship Address Phone ROBERT HALE Guarantor Unknown [phone] Reason For Referral No Information Problems Problem Type SNOMED Code ICD Code Onset Dates Problem Status W/U Status Risk Notes Problem Menopausal symptom (82750268) Symptomatic menopausal or female climacteric states (627.2) Active confirmed Major Problem Gynecological examination normal (686820301043918) Routine gynecological examination (V72.31) Active confirmed Major Problem Screening for malignant neoplasm of colon (544746087) Special screening for malignant neoplasms, colon (V76.51) Active confirmed Major Plan Of Treatment No Information
[2025-02-27 13:59] VITALS: BP 118/62; PULSE 96; RESP 16; TEMP 36.7; O2SAT 98; BMI 27.4
--- NOTE | 2025-02-27 13:59 | AM.OFFVISMDC ---
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 History of Present Illness The patient is a 69-year-old female presenting with elevated fasting blood glucose levels. The issue was identified during recent lab tests, although the patient was not fully fasting at the time of the test. She was advised to fast for 12 hours with water only and to repeat the test in the near future. The patient also reports experiencing dizziness, which appears to be related to orthostatic changes. She was advised to rise slowly from sitting or lying positions and to maintain adequate fluid intake to manage these symptoms. Social History Health Maintenance - Advised to fast for 12 hours with water only before repeating fasting blood glucose test - Encouraged to monitor sugar and carbohydrate intake Review of Systems - Cardiovascular: Denies chest pain or dyspnea - Gastrointestinal: Denies abdominal pain, blood in stool, constipation, or diarrhea - Neurological: Reports dizziness associated with orthostatic changes Physical Exam General: Cooperative, healthy appearing, comfortable, no acute distress and well developed Orientation: Patient oriented x3 Limitations: No limitations Respiratory: Normal respiratory effort and able to speak in complete sentences. Clear to auscultation bilaterally Cardiovascular: Regular rate and rhythm. Normal S1 and S2, faint systolic murmur, no carotid bruits noted bilat Results Plan The patient was advised to repeat the fasting blood glucose test, ensuring a 12-hour fast with water only to obtain accurate results. She was encouraged to monitor her sugar and carbohydrate intake to manage her blood glucose levels. For her dizziness, likely related to orthostatic changes, she was instructed to rise slowly from sitting or lying positions and to maintain adequate hydration. Discussion Notes I discussed with the patient the importance of fasting properly before the blood glucose test to ensure accurate results. We also talked about dietary modifications, specifically reducing sugar and carbohydrate intake, to help manage her blood glucose levels. Regarding her dizziness, I advised her on the importance of rising slowly and maintaining hydration to mitigate orthostatic symptoms. Patient Instructions - Fast for 12 hours with water only before repeating the blood glucose test. - Monitor and reduce sugar and carbohydrate intake. - Rise slowly from sitting or lying positions to prevent dizziness. - Maintain adequate hydration. [facility] Medical History Pelvic fullness Hypertension Mitral regurgitation Hyperlipidemia Post-menopause History of low back pain Surgical History History of mandibular surgery Family History Brother Congestive heart failure Brother Congestive heart failure Brother Myocardial infarction Father Myocardial infarction Maternal Aunt History of breast cancer, Onset Age: 39 Social History Housing: Apartment Patient Tobacco Use Status: Former Tobacco user Tobacco use type: Cigarette Cigarette Packs Per Day: 2 Years Smoked: 30 Second Hand Smoke Exposure: No service: No Current occupational status: employed 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 Cognitive needs: No Hearing needs: No Vision needs: No Questionnaire Medicare Wellness Checkup [age] What gender do you identify with?: female During the past 4 weeks, how much have you been bothered by emotional problems such as feeling anxious, depressed, irritable, sad or downhearted, and blue?: slightly During the past 4 weeks, has your physical & emotional health limited your social activities with family, friends, neighbors, or groups?: slightly During the past 4 weeks, how much bodily pain have you generally had?: very mild pain During the past 4 weeks, was someone available to help you if you needed & wanted help?: yes, as much as I wanted During the past 4 weeks, what was the hardest physical activity you could do for at least 2 minutes?: moderate Can you get to places out of walking distance without help? (For eg., can you travel alone on buses, taxis or drive your car?): Yes Can you go shopping for groceries or clothes without someone's help?: Yes Can you prepare your own meals?: Yes Can you do your housework without help?: Yes Because of any health problems, do you need the help of another person with your personal care needs such as eating, bathing, dressing or getting around the house?: No Can you handle your own money without help?: Yes During the past 4 weeks, how would you rate your health in general?: good During the past 4 weeks how have things been going for you?: pretty well Are you having difficulties driving your car?: no Do you always fasten your seat belt when you are in a car?: yes, usually During past 4 weeks, have you been bothered by the following: never: Falling or dizzy when standing up, Sexual problems?, Teeth or denture problems? and Problems using the telephone? and seldom: Trouble eating well? and Tiredness or fatigue? Have you fallen 2 or more times in the past year?: No Are you afraid of falling?: No Are you a smoker?: no During the past 4 weeks, how many drinks of wine, beer, or other alcoholic beverages did you have?: no alcohol at all Do you exercise for about 20 minutes 3 or more times a week?: yes, some of the time Have you been given information to help with the following?: no: Hazards in your house that might hurt you? and no: Keeping track of your medications? How often do you have trouble taking medicines the way you have been told to take them?: I always take medicine as prescribed How confident are you that you can control & manage most of your health problems?: very confident What is your race?: White Mini Mental State Exam (MMSE) Orientation What is the (year) (season) (date) (day) (month)?: year, season, date, day and month Where are we (state) (county) (town or city) (hospital) (floor)?: state, county, town or city, hospital/clinic and floor Registration Name of 3 unrelated objects clearly and slowly, then ask patient to repeat all 3 of them. (1st repeat determines score. Make sure they can repeat all three): object 1, object 2 and object 3 Attention & Calculation (CHOOSE ONE) Spell WORLD backwards (DLROW): 5 letters Recall Ask patient to repeat the 3 items from question #3.: object 1, object 2 and object 3 Language Show patient a wristwatch & ask what it is. Repeat for pencil.: watch and pencil Ask the patient to repeat the phrase 'No ifs, ands, or buts' after you.: correct Ask the patient to 'take a piece of paper with their right hand' 'fold paper in half' 'place paper on floor': take paper in right hand, fold paper in half and place paper on floor Print the sentence 'CLOSE YOUR EYES' on a piece. If patient actually closes eyes then score.: followed written direction Give patient a blank piece of paper & ask to write a sentence. Score if it contains a noun & verb.: sentence contains subject and verb Ask patient to copy figure of intersecting pentagons exactly. Score if all 10 angles & 2 intersects are included.: all 10 angles present & 2 are intersected Score Score: 30 Activity of Daily Living Bathing - sponge bath, tub bath or shower: receives no assistance (gets in/out by self, if usual bathing means Dressing - getting clothes from closets & drawers, including inner/outer garments & fasteners.: gets clothes & gets completely dressed without help Toileting - going to the 'toilet room' for urine/bowel elimination & cleaning self/arranging clothes: goes to toilet room, cleans self, arranges clothes without help Transfer: moves in & out of bed and chair without help (may use support object) Continence: controls urination/bowel movements completely by self Feeding: feeds self without help Total Score: 0 Information obtained from: patient Using telephone: independent Traveling: independent Shopping: independent Preparing meals: independent Housework: independent Taking medicine: independent Managing money: independent PHQ-9 Over the last 2 weeks, how often have you been bothered by any of the following problems? 1. Little interest or pleasure in doing things: not at all 2. Feeling down, depressed, or hopeless: not at all 3. Trouble falling or staying asleep, or sleeping too much: not at all 4. Feeling tired or having little energy: not at all 5. Poor appetite or overeating: not at all 6. Feeling bad about yourself - or that you are a failure or have let yourself or your family down: not at all 7. Trouble concentrating on things, such as reading the newspaper or watching television: not at all 8. Moving or speaking so slowly that other people could have noticed. Or the opposite - being so fidgety or restless that you have been moving around a lot more than usual: not at all 9. Thoughts that you would be better off or of hurting yourself in some way: not at all Total score: 0 Depression Screening Interpretation: Negative Depression Screening Done: Yes 70809 - PHQ-9 Billing: Yes Source: Developed by Drs. Thomas Yeung, Jocy Hemphill, Michel Colmenares and colleagues, with an educational missy from [employer]. Physical Exam Vital Signs: Last Vital Signs Temp 98.1 F 02/27/25 13:59 Pulse 96 02/27/25 13:59 Resp 16 02/27/25 13:59 BP 118/62 02/27/25 13:59 Pulse Ox 98 02/27/25 13:59 Oxygen Delivery Method Room Air 02/27/25 13:59 BMI result Body Mass Index 27.4 Neuro Other: able to stand from sitting position, able to tandem walk, neg rhomberg, passed whisper test (uses hearing aides) Assessment & Plan Assessment & Plan (1) Smoker: Code(s): F17.200 - Nicotine dependence, unspecified, uncomplicated (2) Encounter for annual wellness visit (AWV) in Medicare patient: Code(s): Z00.00 - Encounter for general adult medical examination without abnormal findings (3) Elevated fasting blood sugar: Code(s): R73.01 - Impaired fasting glucose Plan . Orders: Orders Hemoglobin A1c Today R73.01 - Impaired fasting glucose Comprehensive [place]. Panel Fast Today R73.01 - Impaired fasting glucose Referrals Lung Cancer Screening Referral F17.200 - Nicotine dependence, unspecified, uncomplicated Quality Reporting (2019) Depression/Bipolar (159/160/161/177) PHQ-9: Total score: 0 Coding Level of Care Code Medicare First (G0438) Est Pt Level 3 (27268) Diagnoses Smoker F17.200 Encounter for annual wellness visit (AWV) in Medicare patient Z00.00 Elevated fasting blood sugar R73.01 CPT Codes Advance Care Planning - Time spent: 1-15 minutes, on File ([id number]) Additional Codes PHQ-9 - 10386 - PHQ-9 Billing: Yes ([id number]) Advance Care Planning Forms completed: Health Care Proxy (form given to pt and explained), MOLST (form given to pt, explained) and Living will (encouraged to have performed) Time spent: 1-15 minutes, on File Actual minutes spent: 12
== END 2025-02-27 14:59 | disposition home or self-care (01) ==
LOC: HO.HMCC 13:49
PROVIDERS: PCP Nurse Practitioner Family; Visit Provider Nurse Practitioner Family
DX: Z00.00 Encounter for general adult medical examination without abnormal findings (principal); F17.200 Nicotine dependence, unspecified, uncomplicated; R73.01 Impaired fasting glucose

== ENCOUNTER → 2025-02-27 13:49 | Outpatient (BNVA) | payer MEDICARE, OTHER, SELFPAY | PROVIDERS: PCP Nurse Practitioner Family; Visit Provider Nurse Practitioner Family | DX: Z00.00 Encounter for general adult medical examination without abnormal findings (principal); R73.01 Impaired fasting glucose; F17.200 Nicotine dependence, unspecified, uncomplicated; Z71.6 Tobacco abuse counseling | CPT/HCPCS: 96127 ==

== ENCOUNTER 2025-03-03 13:04 | Outpatient (REF) | payer MEDICARE, OTHER, SELFPAY ==
--- OUTSIDE RECORDS SUMMARY | 2025-03-03 14:05 | XMS_ITS | Patient Health Record ---
Author Organization Total [facility] Address [address] [place] [address] Support Name Relationship Address Phone ROBERT HALE Guarantor Unknown Reason For Referral No Information Problems Problem Type SNOMED Code ICD Code Onset Dates Problem Status W/U Status Risk Notes Problem Menopausal symptom (33105382) Symptomatic menopausal or female climacteric states (627.2) Active confirmed Major Problem Gynecological examination normal (909401012498708) Routine gynecological examination (V72.31) Active confirmed Major Problem Screening for malignant neoplasm of colon (785270125) Special screening for malignant neoplasms, colon (V76.51) Active confirmed Major Plan Of Treatment No Information
[2025-03-03 17:14] LABS: Hemoglobin A1C 111.5370 umol/L; Total Hemoglobin (HGBA1C) 3237.8850 umol/L
[2025-03-03 17:35] LABS: Alanine Aminotransferase 14 U/L (0-31); Albumin Level 4.3 g/dL (3.5-5.0); Alkaline Phosphatase 158 U/L (39-117); Anion Gap 17 (12-20); Aspartate Amino Transferase 28 U/L (5-31); Blood Urea Nitrogen 11 mg/dL (9-16); Calcium 9.8 mg/dL (8.4-10.2); Carbon Dioxide 24 mmol/L (22-29); Chloride 102 mmol/L (96-108); Estimated Glomerular Filt Rate > 60; Potassium 3.4 mmol/L (3.3-5.1); Sodium 140 mmol/L (135-145); Total Protein 7.7 g/dL (6.5-8.0)
[2025-03-03 17:41] LABS: Appearance Urine Clear; Glucose Urine UA Negative (Negative); PH 5.5 (5.0-9.0); Specific Gravity - Urine <= 1.005 (1.005-1.025); UMIC TRIGGER UACC YES
== END 2025-03-03 13:05 | disposition home or self-care (01) ==
LOC: HO.HMGCLDS 13:04
PROVIDERS: PCP Nurse Practitioner Family; Visit Provider Nurse Practitioner Family
DX: I10 Essential (primary) hypertension (principal); E78.5 Hyperlipidemia, unspecified; R73.01 Impaired fasting glucose
CPT/HCPCS: 36415; 80053; 81001; 81003; 83036

== ENCOUNTER 2025-03-04 13:46 | Outpatient (REF) | payer MEDICARE, OTHER, SELFPAY ==
--- OUTSIDE RECORDS SUMMARY | 2025-03-04 15:09 | XMS_ITS | Patient Health Record ---
Author Organization Total [facility] Address [address] [place] [address] Support Name Relationship Address Phone ROBERT HALE Guarantor Unknown [phone] Reason For Referral No Information Problems Problem Type SNOMED Code ICD Code Onset Dates Problem Status W/U Status Risk Notes Problem Symptomatic menopausal or female climacteric states (627.2) Active confirmed Major Problem Gynecological examination normal (659821537080256) Routine gynecological examination (V72.31) Active confirmed Major Problem Screening for malignant neoplasm of colon (294229161) Special screening for malignant neoplasms, colon (V76.51) Active confirmed Major Plan Of Treatment No Information
[2025-03-04 16:25] LABS: Appearance Urine Clear; Glucose Urine UA Negative (Negative); PH 5.5 (5.0-9.0); Specific Gravity - Urine 1.010 (1.005-1.025); UMIC TRIGGER UACC YES
[2025-03-04 16:38] LABS: UACC Culture Trigger YES
[2025-03-07 12:23] LABS: Alk.Phos Iso. Macrohepatic 0 % (<=0); Alk.Phos Isoenzymes Bone 24 % (28-66); Alk.Phos Isoenzymes Intest 3 % (1-24); Alk.Phos Isoenzymes Liver 73 % (25-69); Alk.Phos Isoenzymes Placental 0 % (<=0); Alk.Phos Isoenzymes Total 142 U/L (37-153)
== END 2025-03-04 13:47 | disposition home or self-care (01) ==
LOC: HO.HMGCLDS 13:46
PROVIDERS: PCP Nurse Practitioner Family; Visit Provider Nurse Practitioner Family
DX: R74.8 Abnormal levels of other serum enzymes (principal); R31.29 Other microscopic hematuria
CPT/HCPCS: 36415; 81001; 84080; 87086; 88112

== ENCOUNTER 2025-04-17 11:15 | Outpatient (REF) | payer MEDICARE, OTHER, SELFPAY ==
--- NOTE | ~2025-04-17 | US_ITS ---
CLINICAL HISTORY: R74.8 - Abnormal levels of other serum enzymes US ABDOMEN COMPLETE Comparison: None provided Findings: Visualized portions of the pancreas are unremarkable. Visualized segments of the aorta and IVC are normal caliber. The liver is normal in size and configuration with increased echogenicity. There is no intrahepatic bile duct dilatation. Common bile duct measures 2.8 mm. The gallbladder is normal. There is no sonographic Green sign. Right kidney length is 9.8 cm. No hydronephrosis. Left kidney length is 9.0 cm. No hydronephrosis. The spleen is normal. No ascites. IMPRESSION: 1. Hepatic steatosis. 2. No cholelithiasis or acute cholecystitis. 3. No significant biliary ductal dilatation. 4. No hydronephrosis. This document has been electronically signed by: Ursula Nuno DO on 04/17/2025 20:59:37
--- OUTSIDE RECORDS SUMMARY | 2025-04-17 12:35 | XMS_ITS | Patient Health Record ---
Author Organization Total [facility] Address [address] [place] [address] Support Name Relationship Address Phone ROBERT HALE Guarantor Unknown Reason For Referral No Information Problems Problem Type SNOMED Code ICD Code Onset Dates Problem Status W/U Status Risk Notes Problem Menopausal symptom (72268945) Symptomatic menopausal or female climacteric states (627.2) Active confirmed Major Problem Gynecological examination normal (486616574767557) Routine gynecological examination (V72.31) Active confirmed Major Problem Screening for malignant neoplasm of colon (896748336) Special screening for malignant neoplasms, colon (V76.51) Active confirmed Major Plan Of Treatment No Information
== END 2025-04-17 11:16 | disposition home or self-care (01) ==
LOC: HO.HMGCX 11:15
PROVIDERS: PCP Nurse Practitioner Family; Visit Provider Nurse Practitioner Family
DX: R74.8 Abnormal levels of other serum enzymes (principal); R31.29 Other microscopic hematuria
CPT/HCPCS: 76700

== ENCOUNTER → 2025-04-17 11:18 | Outpatient (BNV) | payer MEDICARE, OTHER, SELFPAY | PROVIDERS: PCP Nurse Practitioner Family; Visit Provider Radiology Diagnostic Radiology | DX: K76.0 Fatty (change of) liver, not elsewhere classified (principal) | CPT/HCPCS: 76700 ==

== ENCOUNTER 2025-05-13 08:52 | Outpatient (AMB) | payer MEDICARE, OTHER, SELFPAY ==
--- NOTE | 2025-05-13 09:06 | A.OFFVIS_ITS ---
Intake Visit Reasons: Microscopic Hematuria Intake Note: Patient is present for MICROSCOPIC HEMATURIA Urology Medication:NONE Antibiotic Allergy:NONE Blood Thinner:NONE Tax Analyst Required: No Allergies jayla Allergy (Severe, Verified 05/13/25 09:55) Rash No Known Drug Allergies Allergy (Unknown, Verified 05/13/25 09:55) none hayfever Allergy (Unknown, Uncoded 05/13/25 09:55) Unknown Medication List - Last Reconciled 05/13/25 by DREW Jacob-PATRICIA atorvastatin 20 mg PO DAILY ibuprofen (Advil) 200 mg PO Q6H PRN lisinopril 5 mg PO DAILY HPI Comments Details: Pippa is a very pleasant 69-year-old female patient of Dr. Cota. She has a past medical history of pelvic fullness, hypertension, mitral regurgitation, hyperlipidemia, and low-back pain. She presents to the office today as a new patient for microscopic hematuria in the setting of previous nicotine dependence. In discussion with the patient today she reports having recently followed up with her PCP and was noted to have microscopic hematuria and recommendations were made for urology referral for further assessment evaluation. Unable to assess urine for urinalysis today as patient unable to void and PVR 0 mL. When asked she does report a previous history of nicotine dependence for approximately 30 years. She reports she quit 15 years ago. When she was smoking she smoked approximately half to 1 pack of cigarettes per day. We did discussed at length potential causes of microscopic hematuria as well as further interventions and risks and benefits of these interventions. In review of patient's chart it does appear she underwent an abdominal ultrasound 04/14 bilateral kidneys with no hydronephrosis. 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 She denies urinary urgency, urinary frequency, incontinence, nocturia, hematuria, dysuria, foul smelling urine, changes to urinary stream, flank pain, fever, and or chills. She is happy with her current voiding parameters. I discussed reasons for blood in the urine may include but are not limited to kidney stones, cancer in the urinary tract, kidney stone disease or inflammatory conditions of the urinary tract. I have discussed workup to include cystoscopy evaluation. All questions were answered. She otherwise offers no other issues or concerns at this time. [facility] Medical History (Reviewed 02/27/25 @ 14:31 by Gilbert Cota [facility] Pelvic fullness Hypertension Mitral regurgitation Hyperlipidemia Post-menopause History of low back pain Surgical History History of mandibular surgery Family History Brother Congestive heart failure Brother Congestive heart failure Brother Myocardial infarction Father Myocardial infarction Maternal Aunt History of breast cancer, Onset Age: 39 Social History Housing: Apartment Patient Tobacco Use Status: Former Tobacco user Tobacco use type: Cigarette Cigarette Packs Per Day: 2 Years Smoked: 30 Second Hand Smoke Exposure: No service: No Current occupational status: employed 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 Cognitive needs: No Hearing needs: No Vision needs: No Review of Systems Const All systems reviewed & are unremarkable except as noted in HPI and below Physical Exam Const General: cooperative, comfortable, no acute distress, well developed, alert and awake Orientation/consciousness: patient oriented x3 HEENT Head: Yes normal to inspection, Yes normocephalic and Yes atraumatic Ears: hearing grossly normal bilaterally Eyes General: appearance normal, both eyes and all related structures Neck Neck: Yes normal visual inspection and Yes trachea midline Chest Chest palpation & inspection: normal inspection of the chest Resp Effort & Inspection: normal respiratory effort and able to speak in complete s entences Cardio Rate: regular rate GI Inspection: Yes normal to inspection General: Yes no CVA tenderness Back/Spine/Pelvis Back: no CVA tenderness Skin General skin exam: no rashes or lesions noted Neuro General: patient oriented x3 Extrem General: Yes normal to inspection Psych Appearance: grossly normal and well kempt Mental Status: mental status grossly normal Speech and movement: Normal speech and movement present and Clear speech present Affect: normal affect Attitude: cooperative Thought process: Normal thought process present Thought content: Normal thought content present Insight: Fair insight present (Psych) Judgement: Fair judgement present (Psych) Results Reviewed Results Reviewed: Date of Service: 04/17/25 Procedure(s): US abdomen complete Findings: Visualized portions of the pancreas are unremarkable. Visualized segments of the aorta and IVC are normal caliber. The liver is normal in size and configuration with increased echogenicity. There is no intrahepatic bile duct dilatation. Common bile duct measures 2.8 mm. The gallbladder is normal. There is no sonographic Green sign. Right kidney length is 9.8 cm. No hydronephrosis. Left kidney length is 9.0 cm. No hydronephrosis. The spleen is normal. No ascites. IMPRESSION: 1. Hepatic steatosis. 2. No cholelithiasis or acute cholecystitis. 3. No significant biliary ductal dilatation. 4. No hydronephrosis. Assessment & Plan Assessment & Plan (1) Microscopic hematuria: Code(s): R31.29 - Other microscopic hematuria Category: Medical (2) History of nicotine dependence: Code(s): Z87.891 - Personal history of nicotine dependence Category: Medical Plan Unable to obtain urine for urinalysis however orders placed to obtain urine cytology. We discussed at length potential causes of microscopic hematuria as well as further workup in risks and benefits of these interventions. She currently denies any bothersome urinary issues. She reports be happy with current voiding parameters. Information provided regarding cystoscopy as well as healthy bathroom behaviors. All questions were answered. She is not wish to undergo further workup at this time will reassess in 3-6 months Follow-up in 3-6 months; or sooner with any issues, concerns, and or questions. Orders: Orders Urine Cytology Today R31.29 - Other microscopic hematuria, Z87.891 - Personal history of nicotine dependence Patient Instructions: The patient had an opportunity to ask questions regarding the treatment plan. All questions were answered. Physical exam, labs, and imaging were discussed and reviewed in detail. As well as risks, benefits, and discussion of treatment choices. No major barriers to understanding were identified. The patient expressed understanding and agreement with the above treatment plan. The patient was made aware they should contact our office by phone for worsening of their current condition, the appearance of new symptoms, or with any questions or concerns. Compliance is encouraged with any medications and follow up testing that is ordered. It is a privilege to be allowed the opportunity to participate in? your urological care.? Again, if you have any questions or concerns If you have any questions or concerns please do not hesitate to contact me. The office is [phone]. This note is constructed using voice recognition software. While every effort has been made to ensure accuracy special forces weapons sergeant errors may have been included. Yours sincerely, Jaclyn Weaver, COLLECTION ADMINISTRATOR-BC Coding Level of Care Code New Pt Level 3 (30863) Diagnoses Microscopic hematuria R31.29 History of nicotine dependence Z87.891
--- OUTSIDE RECORDS SUMMARY | 2025-05-13 10:06 | XMS_ITS | Patient Health Record ---
Author Organization Total [facility] Address [address] [place] [address] Support Name Relationship Address Phone ROBERT HALE Guarantor Unknown Reason For Referral No Information Problems Problem Type SNOMED Code ICD Code Onset Dates Problem Status W/U Status Risk Notes Problem Menopausal symptom (65958443) Symptomatic menopausal or female climacteric states (627.2) Active confirmed Major Problem Gynecological examination normal (729904861486393) Routine gynecological examination (V72.31) Active confirmed Major Problem Screening for malignant neoplasm of colon (720859335) Special screening for malignant neoplasms, colon (V76.51) Active confirmed Major Plan Of Treatment No Information
== END 2025-05-13 09:59 | disposition home or self-care (01) ==
LOC: HO.HUSH 08:53
PROVIDERS: PCP Nurse Practitioner Family; Visit Provider Nurse Practitioner Family
DX: R31.29 Other microscopic hematuria (principal); Z87.891 Personal history of nicotine dependence
CPT/HCPCS: 99203

== ENCOUNTER → 2025-05-13 08:52 | Outpatient (BNVA) | payer MEDICARE, OTHER, SELFPAY | PROVIDERS: PCP Nurse Practitioner Family; Visit Provider Nurse Practitioner Family | DX: R31.29 Other microscopic hematuria (principal); Z87.891 Personal history of nicotine dependence | CPT/HCPCS: 99202 ==

== ENCOUNTER → 2025-07-14 10:45 | Outpatient (BNV) | payer MEDICARE, OTHER, SELFPAY | PROVIDERS: PCP Nurse Practitioner Family; Visit Provider Nurse Practitioner Family | DX: Z13.9 Encounter for screening, unspecified (principal) | CPT/HCPCS: 81003 ==

== ENCOUNTER 2025-07-14 10:49 | Outpatient (REF) | payer MEDICARE, OTHER, SELFPAY | END 2025-07-14 10:50 | disposition home or self-care (01) | LOC: HO.LAB 10:49 | PROVIDERS: Visit Provider Nurse Practitioner Family | DX: R31.29 Other microscopic hematuria (principal) | CPT/HCPCS: 88112 ==

== ENCOUNTER 2025-08-18 09:05 | Outpatient (AMB) | payer MEDICARE, OTHER, SELFPAY ==
--- NOTE | 2025-08-18 09:06 | A.OFFVIS_ITS ---
Intake Visit Reasons: 3M/UA(SET) Intake Note: Patient is present for MICROSCOPIC HEMATURIA Urology Medication:NONE Antibiotic Allergy:NONE Blood Thinner:NONE Labs done : cytology 07/15/25 Manager Rehab Required: No Accompanied by: Self / Same As Patient Allergies jayla Allergy (Severe, Verified 08/18/25 10:02) Rash No Known Drug Allergies Allergy (Unknown, Verified 08/18/25 10:02) none hayfever Allergy (Unknown, Uncoded 08/18/25 10:02) Unknown Medication List - Last Reconciled 08/18/25 by DREW Jacob- atorvastatin 20 mg PO DAILY ibuprofen (Advil) 200 mg PO Q6H PRN lisinopril 5 mg PO DAILY HPI Comments Details: Pippa is a very pleasant 69-year-old female patient of Dr. Cota. She has a past medical history of pelvic fullness, hypertension, mitral regurgitation, hyperlipidemia, and low-back pain. She presents to the office today for follow-up. Of note, patient was seen approximately 3 months ago as a new patient for microscopic hematuria in the setting of previous nicotine dependence. We did discuss during initial visit potential causes of microscopic hematuria as well as further interventions and risks and benefits of these interventions. Plan was to undergo surveillance monitoring and education regarding CT urogram and in office cystoscopy was provided. In discussion with the patient today she reports she is given further intervention a thought and would like to proceed. She does have a history of nicotine dependence for approximately 30 years. She reports she quit 15 years ago. When she was smoking she smoked approximately half to 1 pack of cigarettes per day. We did discussed at length potential causes of microscopic hematuria as well as further interventions and risks and benefits of these interventions. In review of patient's chart it does appear she underwent an abdominal ultrasound 04/14 bilateral kidneys with no hydronephrosis. 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 She denies urinary urgency, urinary frequency, incontinence, nocturia, hematuria, dysuria, foul smelling urine, changes to urinary stream, flank pain, fever, and or chills. She is happy with her current voiding parameters. I discussed reasons for blood in the urine may include but are not limited to kidney stones, cancer in the urinary tract, kidney stone disease or inflammatory conditions of the urinary tract. I have discussed workup to include cystoscopy evaluation. All questions were answered. She otherwise offers no other issues or concerns at this time. Urine cytology: 03/14 Negative for high-grade urothelial carcinoma. [facility] Medical History Pelvic fullness Hypertension Mitral regurgitation Hyperlipidemia Post-menopause History of low back pain Surgical History History of mandibular surgery Family History Brother Congestive heart failure Brother Congestive heart failure Brother Myocardial infarction Father Myocardial infarction Maternal Aunt History of breast cancer, Onset Age: 39 Social History Housing: Apartment Patient Tobacco Use Status: Former Tobacco user Tobacco use type: Cigarette Cigarette Packs Per Day: 2 Years Smoked: 30 Second Hand Smoke Exposure: No service: No Current occupational status: employed 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 Cognitive needs: No Hearing needs: No Vision needs: No Review of Systems Const All systems reviewed & are unremarkable except as noted in HPI and below Physical Exam Const General: cooperative, healthy appearing, comfortable, no acute distress, well developed, alert and awake Orientation/consciousness: patient oriented x3 Limitations: other limitations (bilateral hearing aids) HEENT Head: Yes normal to inspection, Yes normocephalic and Yes atraumatic Ears: hearing grossly normal bilaterally Eyes General: appearance normal, both eyes and all related structures Neck Neck: Yes normal visual inspection and Yes trachea midline Chest Chest palpation & inspection: normal inspection of the chest Resp Effort & Inspection: normal respiratory effort and able to speak in complete sentences Cardio Rate: regular rate GI Inspection: Yes normal to inspection General: Yes no CVA tenderness Back/Spine/Pelvis Back: no CVA tenderness Skin General skin exam: no rashes or lesions noted Neuro General: patient oriented x3 Extrem General: Yes normal to inspection Psych Appearance: grossly normal and well kempt Mental Status: mental status grossly normal Speech and movement: Normal speech and movement present and Clear speech present Affect: normal affect Attitude: cooperative Thought process: Normal thought process present Thought content: Normal thought content present Insight: Fair insight present (Psych) Judgement: Fair judgement present (Psych) Results AMB Urinalysis, Automated UA Leukoctes 0 Naty/uL Last Edit by Regina Sands [facility] on 08/18/25 09:13 UA Nitrite Negative Last Edit by Regina Sands, [facility] on 08/18/25 09:13 UA Urobilinogen 0 mg/dL [facility] on 08/18/25 09:13 UA Protein 0.2 mg/dL [facility] on 08/18/25 09:13 UA pH 6.0 [facility] on 08/18/25 09:13 UA Blood 25 Jd/uL Last [facility] on 08/18/25 09:13 UA Specific [place] 1.010 Last Edit by Rgeina Ruth, [facility] on 08/18/25 09:1 3 UA Ketone Negative Last Edit by Regina Sands, [facility] on 08/18/25 09:13 UA Bilirubin 0 mg/dL Last Edit by Regina Ruth, [facility] on 08/18/25 09:13 UA Glucose 0 mg/dL Last Edit by Regina Ruth, [facility] on 08/18/25 09:13 Results Reviewed Results Reviewed: Laboratory Last Values Urine pH (Auto) 6.0 08/18/25 09:09 Specific [place] (Auto) 1.010 08/18/25 09:09 Urine Protein (Auto) 0.2 mg/dL 08/18/25 09:09 Glucose (UA)(Auto) 0 mg/dL 08/18/25 09:09 Urine Ketones (Auto) Negative 08/18/25 09:09 Urine Blood (Auto) 25 Jd/uL 08/18/25 09:09 Urine Nitrite (Auto) Negative 08/18/25 09:09 Urine Bilirubin (Auto) 0 mg/dL 08/18/25 09:09 Urine Urobilinogen (Auto) 0 mg/dL 08/18/25 09:09 Leukocyte Esterase (Auto) 0 Naty/uL 08/18/25 09:09 Assessment & Plan Assessment & Plan (1) Microscopic hematuria: Code(s): R31.29 - Other microscopic hematuria Category: Medical (2) History of nicotine dependence: Code(s): Z87.891 - Personal history of nicotine dependence Category: Medical Plan In office urinalysis results with the patient today; as noted above; will send for urine cytology We discussed at length potential causes of microscopic hematuria as well as further workup in risks and benefits of these interventions. She currently denies any bothersome urinary issues. She reports be happy with current voiding parameters. All questions were answered. Will obtain CT urogram for further assessment evaluation. BUN and creatinine ordered for imaging. Follow-up next available in office cystoscopy with imaging and labs to be completed prior; or sooner with any issues, concerns, and or questions. Orders: Orders Urine Cytology Today R31.29 - Other microscopic hematuria CT urogram Today R31.0 - Gross hematuria Blood Urea Nitrogen Today R39.15 - Urgency of urination AMB Urinalysis Automated Today N13.8 - Other obstructive and reflux uropathy, N40.1 - Benign prostatic hyperplasia with lower urinary tract symptoms Creatinine Today R39.15 - Urgency of urination Patient Instructions: The patient had an opportunity to ask questions regarding the treatment plan. All questions were answered. Physical exam, labs, and imaging were discussed and reviewed in detail. As well as risks, benefits, and discussion of treatment choices. No major barriers to understanding were identified. The patient expressed understanding and agreement with the above treatment plan. The patient was made aware they should contact our office by phone for worsening of their current condition, the appearance of new symptoms, or with any questio ns or concerns. Compliance is encouraged with any medications and follow up testing that is ordered. It is a privilege to be allowed the opportunity to participate in? your urological care.? Again, if you have any questions or concerns If you have any questions or concerns please do not hesitate to contact me. The office is [phone]. This note is constructed using voice recognition software. While every effort has been made to ensure accuracy emergency vehicle operations instructor errors may have been included. Yours sincerely, DREW Jacob-PATRICIA Coding Level of Care Code Est Pt Level 3 (72406) Add On Problem Visit Only Diagnoses Microscopic hematuria R31.29 History of nicotine dependence Z87.891
--- OUTSIDE RECORDS SUMMARY | 2025-08-18 09:23 | XMS_ITS | Patient Health Record ---
Author Organization [facility] Address [address] [place] [address] Support Name Relationship Address Phone ROBERT HALE Guarantor Unknown [phone] Reason For Referral No Information Problems Problem Type SNOMED Code ICD Code Onset Dates Problem Status W/U Status Risk Notes Problem Menopausal symptom (69664213) Symptomatic menopausal or female climacteric states (627.2) Active confirmed Major Problem Gynecological examination normal (791398984207212) Routine gynecological examination (V72.31) Active confirmed Major Problem Screening for malignant neoplasm of colon (104030296) Special screening for malignant neoplasms, colon (V76.51) Active confirmed Major Plan Of Treatment No Information
== END 2025-08-18 09:51 | disposition home or self-care (01) ==
LOC: HO.HUSH 09:06
PROVIDERS: PCP Nurse Practitioner Family; Visit Provider Nurse Practitioner Family
DX: R31.29 Other microscopic hematuria (principal); Z87.891 Personal history of nicotine dependence; N40.1 Benign prostatic hyperplasia with lower urinary tract symptoms; N13.8 Other obstructive and reflux uropathy
CPT/HCPCS: 99213; G2211

== ENCOUNTER 2025-08-18 09:05 | Outpatient (REF) | payer MEDICARE, OTHER, SELFPAY | END 2025-08-18 09:06 | disposition home or self-care (01) | LOC: HO.LAB 09:05 | PROVIDERS: PCP Nurse Practitioner Family; Visit Provider Nurse Practitioner Family | DX: R31.29 Other microscopic hematuria (principal); N13.8 Other obstructive and reflux uropathy; Z87.891 Personal history of nicotine dependence | CPT/HCPCS: 81003; 88112; 99212 ==